=== PATIENT | male | born 1930 | race Caucasian/White ===

== ENCOUNTER 2016-12-14 18:56 | Inpatient (IN) | payer MEDICARE, BC ==
--- NOTE | ~2016-12-14 | CR63 ---
[facility] A Service of [facility] RADIOLOGY TEXT RESULTS PATIENT: LAVONNE VIVAR LOCATION: [facility] 474-01 : 31 UNIT #: [id number] AGE: [address]: Consuelo Wells MD SEX: M ORDER DR: [id number] [facility] [address] [place], [place] [address] [id number] I MR#: [id number] Acc #: [id number] NAME: LAVONNE VIVAR : 1930 SEX: M STUDY DATE/TIME: 12/17/2016 7:50 UNIT: [facility] ROOM: [facility] STUDY DESCRIPTION: CR Chest 2 View Attending Physician: Consuelo Wells M.D. Ordering Physician: Flaco Giles M.D. Primary Care Physician: Alexia Tobin M.D. MEDICAL IMAGING REPORT This report is preliminary unless electronic signature is present EXAM PA and lateral chest DATE 12/17/2016 HISTORY 86-year-old male with congestive heart failure. Urinary tract infection. Weakness and shortness of breath. Symptoms again, 12/15/2016. Former smoker. COMPARISON PA and lateral chest radiograph 12/14/2016. FINDINGS Studies attenuated by body habitus. There is stable moderate generalized cardiomediastinal enlargement with thoracic aortic tortuosity. Linear band-like atelectasis or scarring remains in the right mid lung. Interstitial thickening within both lungs is redemonstrated but appears somewhat improved. There may be trace right pleural effusion remaining. Mild asymmetric elevation of the right hemidiaphragm. No visible pneumothorax. Right rib fractures, right side pleural calcification, and what appear to be T12 and L1 compression deformities are seen to a better advantage on previous 12/15/2016 CT chest. IMPRESSION 1. Fine interstitial thickening in both lungs predominately in a bibasilar distribution thought to represent changes of mild interstitial edema, improved since 12/14/2016. Probable trace right pleural effusion. 2. Stable cardiomediastinal enlargement. [facility] A Service of [facility] RADIOLOGY TEXT RESULTS PATIENT: LAVONNE VIVAR LOCATION: [facility] 474-01 : 31 UNIT #: [id number] AGE: [address]: Consuelo Wells MD SEX: M ORDER DR: Dictated by... Eunice Hawk M.D. THIS IS AN ELECTRONICALLY VERIFIED REPORT Eunice Hawk M.D. at 12/20/2016 8:30 AM MIRANDA/lore TD: 12/17/2016 09:44 JOB #: [id number] MEDICAL IMAGING REPORT Page 1 of 1 COPY
--- NOTE | ~2016-12-14 | CT57 ---
[facility] A Service of [facility] RADIOLOGY TEXT RESULTS PATIENT: LAVONNE VIVAR LOCATION: [facility] 474-01 : 31 UNIT #: [id number] AGE: [address]: Consuelo Wells MD SEX: M ORDER DR: [id number] [facility] [address] [place], [place] [address] [id number] I MR#: [id number] Acc #: [id number] NAME: LAVONNE VIVAR : 1930 SEX: M STUDY DATE/TIME: 12/15/2016 17:56 UNIT: [facility] ROOM: [facility] STUDY DESCRIPTION: CT Chest Wo Cont Attending Physician: Consuelo Wells M.D. Ordering Physician: Humza Mccollum M.D. Primary Care Physician: Alexia Tobin M.D. MEDICAL IMAGING REPORT This report is preliminary unless electronic signature is present EXAM CT chest without contrast HISTORY Shortness of air for [address] exam was performed with one or more of the following radiation dose reduction techniques: automatic control, adjustment of mA and/or kV according to patient size, and iterative reconstruction. FINDINGS CT chest without contrast demonstrates a stable 1 cm nodule in the posterior left upper lobe, unchanged in size compared to 12/16/2007, containing tiny punctate calcifications on the prior CT, less visible on the motion compromised study today, indicating a benign granuloma. Stable calcified pleural plaque over the posterior right [id number] lung. Stable mild dilatation of the ascending thoracic aorta measuring 4.1 cm in diameter. Mild linear atelectasis or scarring in the inferior right upper lobe and in the posterior right lower lobe. Small calcified subcarinal and right paratracheal nodes. Recent, healing inferior, lateral right rib fractures, and additional recent, healing medial right lower rib fractures. Probable adherent mucus in the right mainstem bronchus. Endobronchial mass is considered less likely. IMPRESSION 1. Calcified pleural plaque posterior right lower chest and adjacent pleural thickening and mild atelectasis in the posterior right lower lobe. This is unchanged compared to 12/16/2007. 2. Stable 1 cm granuloma incidentally noted in the posterior left upper lobe. 3. Probable retained mucus in the right mainstem bronchus. Endobronchial mass is considered less likely. [facility]. [facility] A Service of [facility] RADIOLOGY TEXT RESULTS PATIENT: LAVONNE VIVAR LOCATION: [facility] 474-01 : 31 UNIT #: [id number] AGE: [address]: Consuelo Wells MD SEX: M ORDER DR: 4. Recent healing lateral and medial right lower rib fractures. Dictated by... Gerald Barrientos M.D. THIS IS AN ELECTRONICALLY VERIFIED REPORT Gerald Barrientos M.D. at 12/16/2016 10:22 PM DANIELL/sierra TD: 12/15/2016 23:14 JOB #: [id number] MEDICAL IMAGING REPORT Page 1 of 1 COPY
--- NOTE | ~2016-12-14 | CO ---
Unit #: [id number] #: [id number] Patient: LAVONNE VIVAR [address] [address] [id number] I MR#: [id number] NAME: LAVONNE VIVAR ROOM: 474 Age: 86 Sex: M Admission Date: 12/15/2016 : 1930 Attending Physician: Consuelo Wells M.D. Primary Care Physician: Alexia Tobin M.D. CONSULTATION REPORT REASON FOR CONSULTATION Shortness of breath and possible pneumonia. CHIEF COMPLAINT Shortness of breath. HISTORY OF PRESENT ILLNESS Patient basically is an 86-year-old male with past medical history significant for hypertension, dementia, Parkinson disease, likely asbestos exposure who presents with a complaint of multiple falls and was found to have urinary tract infection. I am seeing the patient at bedside complaining of mild shortness of breath. Denies any nausea, vomiting, diarrhea. PAST MEDICAL HISTORY As described above. PAST SURGICAL HISTORY Brain aneurysm. SOCIAL HISTORY Nonsmoker. No alcohol. No drug abuse. FAMILY HISTORY Unremarkable. MEDICATIONS 1. Plavix. 2. Hydrochlorothiazide. 3. Coreg. 4. Sinemet. 5. Requip. 6. Tylenol. 7. Calcium. PHYSICAL EXAMINATION VITAL SIGNS: Temperature is 98, pulse 87, respirations 12, blood pressure 96/59. NEUROLOGIC: Awake, alert at baseline. CARDIOVASCULAR: S1 plus S2. RESPIRATIONS: Bilateral air entry. Bilateral mild rhonchi. GASTROINTESTINAL: Nontender, soft. Bowel sounds positive. EXTREMITIES: No edema. SKIN: No rash. No ulcer. Unit #: [id number] #: [id number] Patient: LAVONNE VIVAR LYMPHATIC: No lymphadenopathy. DIAGNOSTIC STUDIES Labs and imaging reviewed. IMAGING: CT of the chest was done which showed calcified pleural plaque right lower chest, pleural thickening, atelectasis, 1 cm granuloma left upper lobe, retained mucous in the mainstem bronchus. Endobronchial mass is considered less likely. ASSESSMENT 1. Acute hypoxic respiratory failure. 2. Acute examination of chronic obstructive pulmonary disease, likely pneumonia versus aspiration. 3. Urinary tract infection. 4. Dementia. PLAN Plan is to admit the patient. Start him on IV antibiotic, IV steroid, procalcitonin level. Gastrointestinal and deep venous thrombosis prophylaxis. Will continue to monitor. Please see orders for detailed plan. Thank you very much for this consultation. Dictated by... Leno Demarco TD: 12/17/2016 16:51 JOB #: [id number] CONSULTATION REPORT Page 1 of 1 X Jeremías Martin MD CONSULTATION REPORT
--- NOTE | ~2016-12-14 | CR63 ---
[facility] A Service of [facility] RADIOLOGY TEXT RESULTS PATIENT: LAVONNE VIVAR LOCATION: [facility] 474-01 : 31 UNIT #: [id number] AGE: [address]: Consuelo Wells MD SEX: M ORDER DR: [id number] [facility] [address] [place], [place] [address] [id number] I MR#: [id number] Acc #: [id number] NAME: LAVONNE VIVAR : 1930 SEX: M STUDY DATE/TIME: 12/18/2016 UNIT: [facility] ROOM: [facility] STUDY DESCRIPTION: CR Chest 2 View Attending Physician: Consuelo Wells M.D. Ordering Physician: Jeremías Martin M.D. Primary Care Physician: Alexia Tobin M.D. MEDICAL IMAGING REPORT This report is preliminary unless electronic signature is present EXAM Chest 2 views 12/18/2016 07:54 hours HISTORY Patient complains of shortness of air and wheezing since 12/15/2016. History of CHF and cough. COMPARISON 12/17/2016 FINDINGS Upright PA and lateral views of the chest demonstrates stable moderate enlargement the cardiac silhouette with tortuous ectatic aorta unchanged. There is interval decrease in pulmonary venous distension and decrease in bilateral parenchymal densities likely improving edema. There is some horizontal density in the right midlung likely atelectasis or perhaps trace fluid in the fissure. The lateral view demonstrates no significant pleural fluid. IMPRESSION 1. Stable enlargement of cardiac silhouette and mediastinal widening related to a tortuous ectatic aorta. 2. Interval resolution of pulmonary venous distension with near complete clearing of bilateral parenchymal changes. There is horizontal density in the anterior midlung on the right which is likely atelectasis or fluid in the fissure. Lateral view demonstrates no significant effusions. Dictated by... Lashaun Garza M.D. THIS IS AN ELECTRONICALLY VERIFIED REPORT Lashaun Garza M.D. at 12/18/2016 2:[address] [facility] A Service of [facility] RADIOLOGY TEXT RESULTS PATIENT: LAVONNE VIVAR LOCATION: [facility] 474-01 : 31 UNIT #: [id number] AGE: [address]: Consuelo Wells MD SEX: M ORDER DR: MIRANDA/radha TD: 12/18/2016 11:33 JOB #: [id number] MEDICAL IMAGING REPORT Page 1 of 1 COPY
--- NOTE | ~2016-12-14 | CO ---
Unit #: [id number] #: [id number] Patient: LAVONNE VIVAR [id number] [place], [place] [address] [id number] I MR#: [id number] NAME: LAVONNE VIVAR ROOM: 474 Age: 86 Sex: M Admission Date: 12/15/2016 : 1930 Attending Physician: Consuelo Wells M.D. Primary Care Physician: Alexia Tobin M.D. CONSULTATION REPORT CHIEF COMPLAINT We were asked to see for congestive heart failure. HISTORY OF PRESENT ILLNESS Mr. Vivar is an 86-year-old, elderly male, who lives in the company of his , who presented to the emergency room after multiple falls. The patient is a poor historian. There was a CT of the head on 12/07 that showed diffuse cerebral atrophy consistent with the patient's age. No intracranial hemorrhage, mass effect, or midline shift was seen. The ventricles showed diffuse prominence, which was likely related to central atrophy, but there were no acute intracranial findings. There was a chest x-ray also done on 12/07, which showed bibasilar air space opacities, right greater the left, possibly related to atelectasis and/or pneumonia. There was a suggestion of a small right pleural effusion. Labs done on 12/07 also showed a creatinine level of 1.12. Normal liver enzymes. Normal CBC. He had a UA done, which showed some red blood cells that were 5-9, white blood cells 0-4, trace bacteria and mucus was present. The patient states to me that he is wheelchair bound, although he can get in and out of bed, transfer himself from the wheelchair to the bed to places. He needs to use the wheelchair for quite a while now. He has been short of breath for a couple of years and he has lower extremity edema for a couple of years now. He denies history of arteriosclerotic heart disease. Denies diabetes. Denies hypertension. Denies dyslipidemia. Positive for tobacco. FAMILY HISTORY Noncontributory. PAST MEDICAL HISTORY Positive for dementia and Parkinson. PAST SURGICAL HISTORY Unknown. SOCIAL HISTORY The patient lives in the company of his who is in poor health. They have six children. All children live in [place]. was originally from [place]. They moved here after he retired because he is originally from [place]. He quit smoking 30 years ago. He states he quit smoking when cigarettes went to 15 dollars a carton. FAMILY HISTORY Noncontributory. Unit #: [id number] #: [id number] Patient: LAVONNE VIVAR HOME MEDICATIONS 1. Plavix 75 mg daily. 2. Hydrochlorothiazide 25 mg daily. 3. Coreg 25 mg b.i.d. 4. Sinemet 25/100 six tabs t.i.d. 5. Requip 2 mg at bedtime. 6. Acetaminophen p.r.n. 7. Calcium with Vitamin D t.i.d. ALLERGIES No recorded allergies. REVIEW OF SYSTEMS Positive for chronic shortness of air. Positive for chronic lower extremity edema, chronic immobility syndrome. No chest pain or chest pressure. PHYSICAL EXAMINATION GENERAL: Chronically debilitated elderly white male, in no acute distress. VITAL SIGNS: Temperature 97.4, blood pressure 129/60, pulse 65, respirations 22, weight is 86 kg, height 6 feet 3 inches, BMI is 23. HEENT: Normocephalic, atraumatic. No xanthelasma. Extraocular movements intact. Pupils equal, round, and reactive to light. Mild jugular venous distention. LUNGS: With loose nonproductive cough. Rhonchi. Increased tactile fremitus. HEART: S1 and S2. No S3, S4. No lift. ABDOMEN: Positive bowel sounds. EXTREMITIES: Bilateral lower extremity edema and 2+ pulses. Generalized weakness. NEUROLOGIC: Awake, alert and oriented x3. Speech is slow. The patient is a fair historian. DIAGNOSTIC STUDIES IMAGING STUDIES: Chest x-ray shows cardiomegaly with prominence of the pulmonary vascular interstitium, which could reflect underlying congestive heart failure with a small right pleural effusion. Density projecting over the right paramediastinal location and posteriorly. The lateral view may represent pleural calcifications. Upper lumbar compression fractures appear chronic. CT of the head shows no acute intracranial findings. Atrophy and chronic small vessel changes. Prior aneurysm clipping x2. LABORATORY DATA: Chemistry; sodium 138, potassium 3.2, chloride 102, CO2 30, BUN 18, creatinine 1.2, glucose 126, AST 14, ALT 14, CK 176. BNP 134. Alcohol less than 5. PT 11.7, INR 1.1. Troponin less than 0.05 and repeat less than 0.05. Hemoglobin 13.6, hematocrit 42.5. White blood cell count 12.7, platelet count 163. Urinalysis shows 2+ leukocyte esterase, trace protein, positive for red blood cells, positive for white blood cells. Mucus is present. Urine culture is pending. ASSESSMENT/PLAN 1. Congestive heart failure with fluid volume overload. Echo has been ordered and is pending. 2. Urinary tract infection. The patient has been started on antibiotics, Rocephin IV. We will add Lasix. Unit #: [id number] #: [id number] Patient: LAVONNE VIVAR Dictated by... Magda Wills/didi TD: 12/16/2016 08:28 JOB #: [id number] CONSULTATION REPORT Page 1 of 1 X X CONSULTATION REPORT
--- NOTE | ~2016-12-14 | HP ---
Unit #: [id number] #: [id number] Patient: LAVONNE VIVAR [id number] [address] [id number] I MR#: [id number] NAME: LAVONNE VIVAR ROOM: 474 Age: 86 Sex: M Admission Date: 12/15/2016 : 1930 Attending Physician: Consuelo Wells M.D. Primary Care Physician: Alexia Tobin M.D. HISTORY AND PHYSICAL ADMISSION DIAGNOSES 1. Urinary tract infection. 2. History of multiple falls. 3. Dementia. 4. Parkinson disease. 5. Hypertension. 6. Hypokalemia. 7. History of brain aneurysm status post repair. HISTORY OF PRESENT ILLNESS Mr. Lavonne Vivar is an 86-year-old gentleman who lives at home with his with a history of dementia, Parkinsonism, hypertension and history of brain aneurysm status post repair. The patient was brought to the emergency room secondary to multiple falls in the past week or so. Initial evaluation was suspicious for a UTI with 2+ leukocyte esterase and 50 to 100 WBCs on the urine. The patient was started on Rocephin. The patient is, again, the one with dementia with a very limited ability to carry on a conversation. Most of the history obtained through his , who I spoke to over the phone. Therefore, I am unable to obtain any further history. I am unable to obtain any review of systems. PAST MEDICAL HISTORY History of hypertension, dementia, Parkinson disease and brain aneurysm. PAST SURGICAL HISTORY Brain aneurysm repair. SOCIAL HISTORY No history of tobacco, alcohol or illicit drugs. FAMILY HISTORY Unremarkable. ALLERGIES No known drug allergies. HOME MEDICATIONS 1. Plavix. 2. Hydrochlorothiazide. 3. Coreg. 4. Sinemet. 5. Requip. 6. Tylenol. 7. Calcium with vitamin D. Unit #: [id number] #: [id number] Patient: LAVONNE VIVAR PHYSICAL EXAMINATION GENERAL APPEARANCE: He is a pleasantly demented 86-year-old gentleman not in acute distress. VITAL SIGNS: Blood pressure 129/60. Heart rate 65. Respirations 22. Temperature 97.4. HEENT: Head is atraumatic. He does have a previous scar from the craniotomy. Pupils equal, round and reactive to light. Extraocular muscles intact. Oropharynx clear. NECK: Supple. No mass. No JVD. No bruits. CHEST: Diminished at the bases but otherwise clear. CARDIOVASCULAR: S1, S2. No murmurs. ABDOMEN: Soft, nontender, nondistended. LOWER EXTREMITIES: Very trace edema. NEUROLOGIC: Very limited secondary to patient's dementia. He moves all four extremities. He is alert and awake but, again, he is confused and unable to carry on a meaningful conversation. DIAGNOSTIC STUDIES LABORATORY: UA as above. Chemistry significant for potassium of 3.2, blood glucose 126. White count 12.7, hemoglobin 13.6, hematocrit 42.6. CK 176. BNP 134. ASSESSMENT AND PLAN 1. Multiple falls with the history of Parkinson dementia. Continue home medications. We will get the PT/OT eval. 2. Leukocytosis with questionable UTI, started on Rocephin. Chest x-ray shows some congestion. We will get a CT of the chest without contrast to rule out pneumonia. 3. Elevated BNP with questionable, again, pulmonary edema. We will check 2-D echo. BNP at 134. We will ask Cardiology evaluation. Hold off diuretics secondary to BP in 120s. 4. Hypokalemia. We will replace. Check magnesium level. 5. History of hypertension, stable. 6. GI and DVT prophylaxis with Pepcid and SCDs. Dictated by Leno Callahan/susan TD: 12/15/2016 14:57 JOB #: [id number] HISTORY AND PHYSICAL Page 1 of 1 X Humza Mccollum MD X HISTORY AND PHYSICAL
--- NOTE | ~2016-12-14 | CR72 ---
[facility] A Service of [facility] RADIOLOGY TEXT RESULTS PATIENT: LAVONNE VIVAR LOCATION: [facility] 474 : 31 UNIT #: [id number] AGE: [address]: Consuelo Wells MD SEX: M ORDER DR: [id number] [facility] [address] [place], [place] [address] [id number] I MR#: [id number] Acc #: [id number] NAME: LAVONNE VIVAR : 1930 SEX: M STUDY DATE/TIME: 12/17/2016 14:39 UNIT: [facility] ROOM: [facility] STUDY DESCRIPTION: CR Chest Single View Portable Attending Physician: Consuelo Wells M.D. Ordering Physician: Humza Mccollum M.D. Primary Care Physician: Alexia Tobin M.D. MEDICAL IMAGING REPORT This report is preliminary unless electronic signature is present EXAM AP portable chest DATE 12/17/2016 HISTORY 86-year-old male with shortness breath and wheezing. Symptoms began 12/15/2016. Congestive heart failure. Former smoker. COMPARISON PA and lateral chest radiograph 12/17/2016 at 07:50, CT chest 12/15/2016 FINDINGS Airspace disease within the bilateral lower lobes thought to represent atelectasis, probably not significantly changed. Stable cardiac enlargement with central vascular congestion. Probable mild central interstitial edema. Old right rib fractures. Probable trace right pleural effusion. No visible pneumothorax. IMPRESSION 1. Mild interstitial edema with mild right greater than left bibasilar atelectasis and trace right pleural effusions, without significant change from earlier today. 2. Stable cardiomegaly. 3. Old right rib fractures. Dictated by... Eunice Hawk M.D. THIS IS AN ELECTRONICALLY VERIFIED REPORT Eunice Hawk M.D. at 12/20/2016 8:30 AM MIRANDA/иван [facility] A Service of [facility] RADIOLOGY TEXT RESULTS PATIENT: LAVONNE VIVAR LOCATION: [facility] : 31 UNIT #: [id number] AGE: [address]: Consuelo Wells MD SEX: M ORDER DR: TD: 12/17/2016 17:31 JOB #: [id number] MEDICAL IMAGING REPORT Page 1 of 1 COPY
--- NOTE | ~2016-12-14 | CR63 ---
[facility] A Service of [facility] RADIOLOGY TEXT RESULTS PATIENT: LAVONNE VIVAR LOCATION: [address] [address]- : 31 UNIT #: [id number] AGE: [address]: Consuelo Wells MD SEX: M ORDER DR: [id number] [facility] [address] [place], [place] [address] [id number] I MR#: [id number] Acc #: [id number] NAME: LAVONNE VIVAR : 1930 SEX: M STUDY DATE/TIME: 12/14/2016 22:01 UNIT: [facility] ROOM: [id number] STUDY DESCRIPTION: CR Chest 2 View Attending Physician: Consuelo Wells M.D. Ordering Physician: Saskia Herbert M.D. Primary Care Physician: Alexia Tobin M.D. MEDICAL IMAGING REPORT This report is preliminary unless electronic signature is present EXAM 2-view chest HISTORY A recent fall, shortness of air for 2 days previous smoker. FINDINGS 2 views of the chest demonstrates cardiomegaly with prominence of the pulmonary vascular and interstitium could reflect underlying CHF. Mild haziness over both lungs may represent a component of interstitial and alveolar edema. There is right sided volume loss with right basilar atelectasis. Probable trace amount of right pleural fluid. Suspected pleural thickening and/or calcification along the posterior aspect of the right pleural space. Mild diffuse aortic atherosclerotic change. No pneumothorax. Evaluation of thoracic spine demonstrates several compression fractures involving the upper lumbar spine with approximately 40 to 50% loss of the vertebral body height. IMPRESSION 1. Cardiomegaly with prominence of the pulmonary vascular and interstitium could reflect underlying CHF with a small right pleural effusion. 2. Density projecting in the right paramediastinal location and posteriorly on the lateral view may represent pleural calcifications possibly related to prior trauma. 3. Upper lumbar compression fractures appear chronic. Dictated by... Sharon Hussein M.D. THIS IS AN ELECTRONICALLY VERIFIED REPORT Sharon Hussein M.D. at 12/17/2016 6:07 AM JMS/rnr [facility] A Service of [facility] RADIOLOGY TEXT RESULTS PATIENT: LAVONNE VIVAR LOCATION: [facility] 474-01 : 31 UNIT #: [id number] AGE: [address]: Consuelo Wells MD SEX: M ORDER DR: TD: 12/15/2016 03:30 JOB #: [id number] MEDICAL IMAGING REPORT Page 1 of 1 COPY
--- NOTE | ~2016-12-14 | CT71 ---
[facility] A Service of [facility] RADIOLOGY TEXT RESULTS PATIENT: LAVONNE VIVAR LOCATION: [facility] 474- : 31 UNIT #: [id number] AGE: [address]: Consuelo Wells MD SEX: M ORDER DR: [id number] [facility] [address] [facility]. [place], [place] [address] [id number] MR#: [id number] Acc #: [id number] NAME: LAVONNE VIVAR : 1930 SEX: M STUDY DATE/TIME: 12/14/2016 22:33 UNIT: CEDOF ROOM: 03805 STUDY DESCRIPTION: CT Head Wo Contrast Attending Physician: Consuelo Wells M.D. Ordering Physician: Saskia Herbert M.D. Primary Care Physician: Alexia Tobin M.D. MEDICAL IMAGING REPORT This report is preliminary unless electronic signature is present EXAM CT head INDICATIONS Fall three times at home. Hit head. Trauma. TECHNIQUE CT head without contrast. This CT exam was performed with one or more of the following radiation dose reduction techniques: automatic control, adjustment of mA and/or kV according to patient size, and iterative reconstruction. COMPARISON None available. FINDINGS There is no acute intracranial hemorrhage, mass lesion, or acute infarct. There is generalized global cerebral atrophy and chronic small vessel changes. There are clips associated with the anterior cerebral artery and the left MCA indicative of prior aneurysm clipping. The ventricles and basilar cisterns are normal in size and configuration. No extraaxial collections. There is no acute osseous abnormalities. There is postsurgical changes of a craniotomy on the right and the left. IMPRESSION 1. No acute intracranial findings. 2. Atrophy and chronic small vessel changes. 3. Prior aneurysm clipping x2. Dictated by... Lonnie Dove M.D. [facility] A Service [facility] RADIOLOGY TEXT RESULTS PATIENT: LAVONNE VIVAR LOCATION: [facility] 474- : 31 UNIT #: [id number] AGE: [address]: Consuelo Wells MD SEX: M ORDER DR: THIS IS AN ELECTRONICALLY VERIFIED REPORT Lonnie Dove M.D. at 12/15/2016 11:15 PM PRISCILA/sierra TD: 12/15/2016 03:35 JOB #: [id number] MEDICAL IMAGING REPORT Page 1 of 1 COPY
--- NOTE | ~2016-12-14 | DS ---
Unit #: [id number] #: [id number] Patient: LAVONNE VIVAR [id number] [facility]. [place] [id number] [facility]. [place], [place] [address] [id number] I MR#: [id number] NAME: LAVONNE VIVAR ROOM: 474 Age: 86 Sex: M Admission Date: 12/15/2016 : 1930 Discharge Date: 12/18/2016 Attending Physician: Consuelo Wells M.D. Primary Care Physician: Alexia Tobin M.D. DISCHARGE SUMMARY DISCHARGE DIAGNOSES 1. Enterococcal urinary tract infection. 2. Multiple falls. 3. Parkinson dementia. 4. Hypertension. 5. History of brain aneurysm. 6. Congestive heart failure. CONSULTANTS DONE THIS HOSPITAL STAY 1. Dr. Martin, pulmonary. 2. Dr. Carlin, cardiology. LABS AND DIAGNOSTICS AND PROCEDURES DONE THIS HOSPITAL STAY 1. Chest x-ray on admission showed cardiomegaly with the pulmonary vascular prominence, underlying CHF. 2. CT head without the contrast: No acute findings. Generalized atrophy. 3. CT of the chest without contrast: Calcified pleural plaque unchanged. Stable 1 cm granuloma. Likely a mucous plug. Recent healing lateral and medial right lower rib fracture. 4. Last chest x-ray from December 18: Stable right ventral cardiac silhouette. Mediastinal widening. Tortuous ectatic aorta. Interval resolution of the pulmonary venous distention with the near complete clearing of bilateral parenchymal changes. 5. Urine culture shows Enterococcus sensitive to ampicillin. HISTORY OF PRESENT HOSPITAL STAY Please refer to H and P done by me for initial presentation on this gentleman. ACTIVE PROBLEMS AND DIAGNOSES Enterococcal UTI, was treated with the Unasyn in the hospital, now switching to a p.o. ampicillin for five more days. Stable to be discharged, afebrile, white count 5.8. Multiple falls, most likely secondary to Parkinson dementia, status post negative CT of the head, status post PT/OT evaluation. [facility] CHF, status post Cardiology evaluation. Continue beta elsi and continue Lovenox. Status post 2D echo which shows EF of 55% with the grade I diastolic dysfunction so his diastolic heart failure. History of brain aneurysm status post repair in the past, stable. Unit #: [id number] #: [id number] Patient: LAVONNE VIVAR DISCHARGE MEDICATIONS 1. Combivent inhaler q.4 h. p.r.n. for shortness of air. 2. Prednisone taper for five more days. 3. Tylenol p.r.n. 4. Requip 2 mg q.h.s. 5. Coreg 25 mg b.i.d. 6. Lasix 20 mg b.i.d. 7. Pepcid 20 mg daily. 8. Sinemet 25/100 six tablets p.o. t.i.d. 9. Plavix 75 mg daily. 10. Calcium with vitamin D t.i.d. 11. Klor-Con 20 mEq daily. 12. Ampicillin 500 mg p.o. t.i.d. for five days. DISPOSITION AND FOLLOWUP Again patient is being discharge to either [facility] or [facility] and will follow up with the primary care physician there, outpatient followup with the cardiology. Dictated by... Humza Mccollum M.D. OC/cf TD: 12/18/2016 19:50 JOB #: [id number] DISCHARGE SUMMARY Page 1 of 1 X Humza Mccollum MD X DISCHARGE SUMMARY
--- NOTE | ~2016-12-14 | EKG ---
PATIENT: LAVONNE VIVAR UNIT #: [id number] Ventricular Rate: 73 BPM Atrial Rate: 73 BPM P-R Interval: 162 ms QRS Duration: 104 ms Q-T Interval: 378 ms QTC Calculation(Bezet): 416 ms P [place]: 31 degrees Calculated R [place]: -5 degrees Calculated T [place]: 3 degrees Diagnosis Line: Normal sinus rhythm Diagnosis Line: Normal ECG Diagnosis Line: No previous ECGs available Diagnosis Line: Confirmed by LIA ELIZONDO MD ([id number]) on Diagnosis Line: 12/15/2016 4:29:47 PM INTERPRETING MD: MIKHAIL KNOWLES
[2016-12-14 21:55] LABS: BASOPHIL# 0.1 X10e3 (0-0.3); BASOPHIL% 0.6 % (0-2.5); DIFF IND NO; EOSINOPHIL# 0.1 X10e3 (0-0.7); EOSINOPHIL% 0.6 % (0.0-7.0); HEMATOCRIT 42.5 % (38.0-50.0); HEMOGLOBIN 13.6 gm/dL (13.0-16.0); LYMPHOCYTE# 2.1 X10e3 (1.0-3.5); LYMPHOCYTE% 16.4 % (17.0-45.0); MEAN CELL VOLUME 91.1 FL (83-96); MEAN CORPUSCULAR HEMOGLOBIN 29.2 PG (28-34); MEAN CORPUSCULAR HGB CONC 32.1 g/dL (30-36); MEAN PLATELET VOLUME 9.3 FL (6.5-11.5); MONOCYTE# 0.9 X10e3 (0-1.0); MONOCYTE% 7.4 % (3.0-12.0); NEUTROPHIL# 9.5 X10e3 (1.5-7.1); PLATELET COUNT 163 X10e3 (140-420); RED BLOOD COUNT 4.66 X10e (3.90-5.60); RED CELL DISTRIBUTION WIDTH 14.4 % (11.0-15.5); WHITE BLOOD COUNT 12.7 X10e3 (4.0-10.5)
[2016-12-14 22:08] LABS: INR 1.1; PROTHROMBIN TIME (PATIENT) 11.7 SECONDS (9.6-11.5)
[2016-12-14 22:23] LABS: ALBUMIN SERUM 3.2 g/dL (3.5-5.0); ALCOHOL BLOOD <5 mg/dL (0); ALKALINE PHOSPHATASE 91 U/L (32-92); ALT (SGPT) 14 U/L (10-40); AST (SGOT) 14 U/L (10-42); BILIRUBIN, DIRECT 0.2 mg/dL (0.0-0.2); BILIRUBIN,INDIRECT 0.5 mg/dL (0.0-0.9); BILIRUBIN,TOTAL 0.7 mg/dL (0.2-2.0); BLOOD UREA NITROGEN 18 mg/dL (9-23); CALCIUM SERUM 8.6 mg/dL (8.4-10.2); CARBON DIOXIDE 30 mmol/L (22-31); CHLORIDE 102 mmol/L (100-111); CREATININE SERUM 1.2 mg/dL (0.6-1.4); GLOM FILT RATE Estimated 54.8 mL/min (>60); GLUCOSE FASTING 126 mg/dL (70-110); POTASSIUM 3.2 mmol/L (3.5-5.1); PROTEIN TOTAL SERUM 6.6 g/dL (6.0-8.3); SODIUM 138 mmol/L (135-145)
[2016-12-14 23:20] LABS: URINE SOURCE CLEAN CATCH
[2016-12-14 23:23] LABS: URINE APPEARANCE CLOUDY; URINE BLOOD TRACE (NEG); URINE COLOR DK YELLOW; URINE GLUCOSE NEG (NEG); URINE KETONE TRACE (NEG); URINE LEUKOCYTE ESTERASE 2+ (NEG); URINE NITRATE NEG (NEG); URINE PROTEIN TRACE (NEG); URINE SPECIFIC GRAVITY 1.025 (1.003-1.035)
[2016-12-14 23:24] LABS: POC - CKMB <1.0 ng/mL (0.0-7.9); POC - TROPONIN <0.05 ng/mL (<=0.05)
[2016-12-14 23:25] LABS: CULTURE INDICATED? YES; URINE BACTERIA AUWI 2+ (NEGATIVE); URINE SQUAMOUS EPITHELIAL CELL NONE SEEN /[HPF]; UWBCS1 AUWI 50-100 (0-5)
[2016-12-14 23:39] LABS: URINE BILIRUBIN NEG (NEG)
[2016-12-14 23:40] LABS: URINE MUCUS PRESENT
[2016-12-15 00:21] LABS: POC - CKMB <1.0 ng/mL (0.0-7.9); POC - TROPONIN <0.05 ng/mL (<=0.05)
[2016-12-15] MEDS ORDERED: CLOPIDOGREL75 MG PO (01:00)
[2016-12-15] MEDS ORDERED: HYDROCHLOROTHIA25 MG PO (01:01)
[2016-12-15] MEDS ORDERED: COREG PO (01:02)
[2016-12-15] MEDS ORDERED: REQUIP XL2 MG PO (13:30)
[2016-12-15] MEDS ORDERED: SINEMET-25/1001 TA1 PO (13:30)
[2016-12-15] MEDS ORDERED: CALCIUM 500 +1 EAC2 PO (13:58)
[2016-12-15] MEDS ORDERED: ACETAMINOPHEN PO (13:58)
[2016-12-16 03:27] LABS: BASOPHIL# 0.1 X10e3 (0-0.3); BASOPHIL% 0.6 % (0-2.5); EOSINOPHIL# 0.2 X10e3 (0-0.7); EOSINOPHIL% 2.6 % (0.0-7.0); HEMOGLOBIN 13.7 gm/dL (13.0-16.0); LYMPHOCYTE# 1.7 X10e3 (1.0-3.5); LYMPHOCYTE% 20.3 % (17.0-45.0); MEAN CELL VOLUME 91.4 FL (83-96); MEAN CORPUSCULAR HEMOGLOBIN 29.8 PG (28-34); MEAN CORPUSCULAR HGB CONC 32.6 g/dL (30-36); MONOCYTE# 0.6 X10e3 (0-1.0); MONOCYTE% 7.1 % (3.0-12.0); NEUTROPHIL# 5.8 X10e3 (1.5-7.1); NEUTROPHIL% 69.4 % (40-75); PLATELET COUNT 168 X10e3 (140-420); RED CELL DISTRIBUTION WIDTH 14.1 % (11.0-15.5); WHITE BLOOD COUNT 8.4 X10e3 (4.0-10.5)
[2016-12-16 03:38] LABS: DIFF IND NO
[2016-12-16 03:45] LABS: CALCIUM SERUM 8.3 mg/dL (8.4-10.2); CREATININE SERUM 0.9 mg/dL (0.6-1.4); GLOM FILT RATE Estimated 77.6 mL/min (>60)
[2016-12-16 04:04] LABS: PROCALCITONIN 0.08 NG/ML
[2016-12-17 04:20] LABS: BUN/CREATININE RATIO 21.11; CALCIUM SERUM 8.9 mg/dL (8.4-10.2); CREATININE SERUM 0.9 mg/dL (0.6-1.4); GLOM FILT RATE Estimated 77.6 mL/min (>60); POTASSIUM 3.9 mmol/L (3.5-5.1)
[2016-12-18 03:31] LABS: BASOPHIL% 0.3 % (0-2.5); DIFF IND NO; EOSINOPHIL% 0.1 % (0.0-7.0); HEMATOCRIT 42.9 % (38.0-50.0); HEMOGLOBIN 13.9 gm/dL (13.0-16.0); LYMPHOCYTE# 0.9 X10e3 (1.0-3.5); LYMPHOCYTE% 15.8 % (17.0-45.0); MEAN CELL VOLUME 90.1 FL (83-96); MEAN CORPUSCULAR HEMOGLOBIN 29.3 PG (28-34); MEAN CORPUSCULAR HGB CONC 32.5 g/dL (30-36); MEAN PLATELET VOLUME 9.5 FL (6.5-11.5); MONOCYTE# 0.1 X10e3 (0-1.0); MONOCYTE% 1.5 % (3.0-12.0); NEUTROPHIL# 4.8 X10e3 (1.5-7.1); NEUTROPHIL% 82.3 % (40-75); PLATELET COUNT 191 X10e3 (140-420); RED BLOOD COUNT 4.76 X10e (3.90-5.60); RED CELL DISTRIBUTION WIDTH 13.9 % (11.0-15.5); WHITE BLOOD COUNT 5.8 X10e3 (4.0-10.5)
[2016-12-18 03:57] LABS: ALBUMIN SERUM 3.1 g/dL (3.5-5.0); BILIRUBIN,TOTAL 0.5 mg/dL (0.2-2.0); CALCIUM SERUM 9.1 mg/dL (8.4-10.2); CREATININE SERUM 0.9 mg/dL (0.6-1.4); GLOM FILT RATE Estimated 77.6 mL/min (>60); MAGNESIUM 1.9 mg/dL (1.6-3.0); POTASSIUM 4.1 mmol/L (3.5-5.1); PROTEIN TOTAL SERUM 6.8 g/dL (6.0-8.3)
[2016-12-18 05:07] LABS: ARTERIAL BLD GAS O2 SATURATION 94.8 % (90.0-100.0); ARTERIAL BLOOD GAS HCO3 33.7 mmol/L; ARTERIAL BLOOD GAS MET HB 0.7 %sat (0.0-2.0); ARTERIAL BLOOD GAS pH 7.437 (7.350-7.450)
[2016-12-18 05:08] LABS: ARTERIAL BLOOD GAS ALLEN TEST NORMAL; ARTERIAL BLOOD GAS ART SITE RIGHT RADIAL; ARTERIAL BLOOD GAS DELIVERY NASAL CANNULA; ARTERIAL BLOOD GAS PO2 75.6 mmHg (80.0-100); ARTERIAL DRAW? YES
== END 2016-12-18 21:07 | DRG 291 ==
LOC: CED 18:56 → CEDOF 12-15 01:34 → CED 12-15 01:41 → CEDOF 12-15 01:41 → C4C 12-15 09:40 → CEDOF 12-15 09:40 → C4C 12-18 21:07
PROVIDERS: Emergency Medicine; Hospitalist; Internal Medicine; Internal Medicine Cardiovascular Disease; Nurse Practitioner Family
PROC: B24BZZZ Ultrasonography of Heart with Aorta (ICD-10-PCS; principal; 2016-12-16)
DX: I11.0 Hypertensive heart disease with heart failure (principal); J96.01 Acute respiratory failure with hypoxia; J18.9 Pneumonia, unspecified organism; N39.0 Urinary tract infection, site not specified; J44.0 Chronic obstructive pulmonary disease with (acute) lower respiratory infection; I50.31 Acute diastolic (congestive) heart failure; B95.2 Enterococcus as the cause of diseases classified elsewhere; R29.6 Repeated falls; Z91.81 History of falling; G20 Parkinson's disease; F02.80 Dementia in other diseases classified elsewhere, unspecified severity, without behavioral disturbance, psychotic disturbance, mood disturbance, and anxiety; E87.6 Hypokalemia; M62.3 Immobility syndrome (paraplegic)
CPT/HCPCS: 36415; 36600; 70450; 71010; 71020; 71250; 80048; 80053; 80076; 81003; 82308; 82550; 82553; 82803; 82947; 83605; 83735; 83880; 84443; 84484; 85025; 85610; 87086; 87088; 87186; 93005; 93306; 94640; 94760; 96365; 97110; 97116; 97161; 97166; 97530; 99285; G0480; G8978-GP; G8979-GP; G8987-GO; G8988-GO; J0295; J0696; J1650; J1940; J2930

== ENCOUNTER 2017-02-04 19:45 | Inpatient (IN) | payer MEDICARE ==
[~2017-02-04] VITALS: Ht 188 cm; Wt 88.0 kg
--- NOTE | ~2017-02-04 | CO ---
Unit #: [id number] #: [id number] Patient: LAVONNE VIVAR [id number] [facility] [address]. [place], [place] [address] [id number] I MR#: [id number] NAME: LAVONNE VIVAR ROOM: 571 Age: 87 Sex: M Admission Date: 02/04/2017 : 1930 Attending Physician: Consuelo Wells M.D. Primary Care Physician: Alexia Tobin M.D. 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 HISTORY OF PRESENT ILLNESS 87-year-old gentleman we were asked to see because of a rectal mass at 15 cm, which was biopsied but the endoscopies, Dr. Del Valle stated in his evaluation, the lesion looked more malignant. It was nearly apple core, which is not reflected in the pathology. The patient, himself, is totally unaware of what is happening. When interviewed in the room he does not know his name. He knows that he is [facility] but has no idea about why he is here and what has been found so far. No family member available and the two daughters are out of town, one of the sons is not available and has most probably the power of corporate associate attorney. The nurses were told that the mother cannot remember much and should not be involved. PAST HISTORY Mainly remarkable for parkinsonism and brain aneurysm, state of which is unknown to us, history of hypertension, COPD, and reflux disease. FAMILY HISTORY Unavailable but is overall negative or unremarkable. SOCIAL HISTORY Patient lives with his . Nonsmoker. No alcohol. He is retired. ALLERGIES No known allergies. CHRONIC MEDICATIONS FROM HOME Coreg, Plavix, Requip, Sinemet, Lasix, calcium, nitroglycerin, zantac, acetaminophen periodically. REVIEW OF SYSTEMS He is unable to answer the majority of the questions. He states that he is fine. No pain but otherwise review of system was limited. PHYSICAL EXAMINATION GENERAL: Looks stated age. Very pleasant. No palpable nodes. LUNGS: Clear. CARDIOVASCULAR: Distant S1 and S2. ABDOMEN: No palpable liver or spleen. No ascites. Upper and lower extremity musculature, some atrophy. Nothing unusual considering age. RECTAL: Not performed. Unit #: [id number] #: [id number] Patient: LAVONNE VIVAR DIAGNOSTIC STUDIES LABORATORY STUDIES: Glucose 86, BUN 17, creatinine 0.9, sodium 140, potassium 3.9, chloride 103, CO2 32, calcium of 9.5. ProTime 11.9, INR 1.1. Hemoglobin 13.8, hematocrit 43.6, white count 14.6, platelet 221,000. CEA is 5.6. IMAGING STUDIES: CT scan of the abdomen and pelvis was reviewed and its shows a mass lesion of about 2-3 cm in the rectum. No evidence of metastatic disease. 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 No evidence of active or invasive cancer or carcinoma in situ. Has Parkinson dementia. has memory problems and two daughter we could not get a hold of that are out of town and the son who is supposedly has power of corporate associate attorney but is not available at this point during evaluation and subsequent second day evaluation. So at this point this is a difficulty situation. I would consider: 1. Re-endoscopy and biopsy. 2. MRI to see if this is a resectable lesion and consider surgical option as #1 option, as without evidence of actual invasive carcinoma, it is difficult to treat with chemoradiotherapy. Will discuss all this with all the doctors involved. Dictated by... Leno Olivares/laura TD: 02/16/2017 12:59 JOB #: [id number] CONSULTATION REPORT Page 1 of 1 X Jimbo Velasquez MD X CONSULTATION REPORT
--- NOTE | ~2017-02-04 | HP ---
Unit #: [id number] #: [id number] Patient: LAVONNE VIVAR [id number] [address] [address] [id number] I MR#: [id number] NAME: LAVONNE VIVAR ROOM: 571 Age: 87 Sex: M Admission Date: 02/04/2017 : 1930 Attending Physician: Consuelo Wells M.D. Primary Care Physician: Alexia Tobin M.D. HISTORY AND PHYSICAL CHIEF COMPLAINT Altered mental status and shortness of breath. HISTORY OF PRESENTING ILLNESS An 87-year-old male with a past history of Parkinson disease, COPD, hypertension, and questionable dementia, was sent from home because of altered mental status. Patient was seen by his home health nurse or nurse practitioner, I am not sure, and was told that he needs to come to the hospital. Patient was sent to the ER and was admitted for possible aspiration pneumonia, possible metabolic encephalopathy, possible COPD exacerbation, and abnormal EKG. Patient is awake, alert, and oriented x1 for sure but not able to provide much history. He does not complain of any pain. Per patient's , he is pretty with it at home, although he needs a lot of help with activities of daily living. PAST MEDICAL HISTORY 1. Hypertension. 2. Parkinson disease. 3. History of brain aneurysm. 4. Chronic obstructive pulmonary disease. 5. Gastroesophageal reflux disease. PAST SURGICAL HISTORY History of brain aneurysm. HOME MEDICATIONS 1. Plavix 75 mg daily. 2. Coreg 25 mg twice daily. 3. Sinemet 25/100 at 2 tablets 3 times daily. 4. Requip 2 mg at bedtime. 5. Acetaminophen 500 mg q.6 p.r.n. 6. Calcium with vitamin D 500 at 1 tablet 3 times daily. 7. Lasix 20 mg twice daily. 8. Potassium 10 mEq daily. 9. Nitroglycerin 0.4 mg sublingual p.r.n. 10. Zantac 150 mg daily. ALLERGIES No known drug allergies. SOCIAL HISTORY Patient lives at home with his . No history of smoking, alcohol, or drug abuse. Unit #: [id number] #: [id number] Patient: LAVONNE VIVAR FAMILY HISTORY Unremarkable. REVIEW OF SYSTEMS As per History of Presenting Illness. Nothing more is available at this time. PHYSICAL EXAMINATION GENERAL: Patient is being evaluated in room 571. VITAL SIGNS: Blood pressure is 132/92. On admission, blood pressure was 176/101. Respiratory rate 18, pulse 92, temperature 98.1, and oxygen saturation is 96%. HEENT: Head is normocephalic. Eye movements are normal. NECK: Supple. CHEST: Decreased air entry at the bases. A few crackles are heard. CARDIOVASCULAR: S1 and S2 positive. Regular rhythm. ABDOMEN: Soft although per patient it is hurting in the abdomen on palpation. Bowel sounds are positive. EXTREMITIES: Edema is present. Pulses are palpable. Cold extremities. CENTRAL NERVOUS SYSTEM: Patient is awake. He is able to communicate some. He is able to answer some questions. He is moving all his extremities. DIAGNOSTIC STUDIES LABORATORY: WBC 8.7, hemoglobin 14.5, hematocrit 44.5, and platelet count of 173,000. Troponin is less than 0.05. PT-INR is 11.9 and 1.1. Lactic acid 1.3. Sodium 138, potassium 3.7, chloride 105, BUN 15, and creatinine 1.5. BNP 195. Total cholesterol 118 and LDL is 67. Blood cultures so far are negative. ASSESSMENT Patient is being admitted to a telemetry unit with: 1. Altered mental status, possible metabolic encephalopathy. 2. Possible aspiration pneumonia. 3. Chronic obstructive pulmonary disease exacerbation. 4. Abnormal EKG. 5. Hypertension. 6. History of Parkinson disease. PLAN Admit to telemetry unit. Dr. Odom has been consulted. Patient is being started on IV clindamycin as per his recommendation. Speech evaluation was done, and diet has been adjusted. Please refer to the Progress Note. Mucinex is being started, bronchodilator is being started, and IV Solu-Medrol is being started. Dr. Carlin is being consulted for abnormal EKG. Most likely conservative treatment at this time. Please refer to Progress Note for further orders. Dictated by Leno Lin TD: 02/05/2017 14:16 JOB #: [id number] Unit #: [id number] #: [id number] Patient: LAVONNE VIVAR HISTORY AND PHYSICAL Page 1 of 1 X Consuelo Wells MD HISTORY AND PHYSICAL
--- NOTE | ~2017-02-04 | CO ---
Unit #: [id number] #: [id number] Patient: LAVONNE VIVAR [id number] [place] [address] [facility]. [place], [place] [address] [id number] I MR#: [id number] NAME: LAVONNE VIVAR ROOM: 571 Age: 87 Sex: M Admission Date: 02/04/2017 : 1930 Attending Physician: Consuelo Wells M.D. Primary Care Physician: Alexia Tobin M.D. Consultation Date: 02/05/2017 CONSULTATION REPORT REASON FOR CONSULTATION Abnormal EKG. HISTORY OF PRESENT ILLNESS This is an 87-year-old white male with history of Parkinson disease and history of hypertension, brain aneurysm years ago had clipping, and EF of 55%, who was brought in by EMS from his home after his said, he just was not feeling well and a just got lightheaded and weak. The patient was seen to be very sleepy this morning and was a very poor historian. He was awake and alert, but was not very cooperative with answering questions. I talked to the on the phone, who says that normally he is coherent, he makes his own decisions. He does have the Parkinson's. He is in a wheelchair lot of the day, but he can ambulate a little bit with a walker. According to the , the visiting nurse came in yesterday and evaluated the patient, she thought compared to last week he just was not feeling well. He proceeded to get up from the bed to the wheelchair and got very lightheaded and weak. The said he just was not acting himself. She said he mentioned he was dizzy, but there was no syncope or syncopal episode that occurred. Upon asking the patient and , there was no indication of any chest pain; pain in his neck, bilateral jaws, shoulders, arms, or elbow. She did not think he looked very short of breath. No recent cough, fever or chills. No recent acute illness. The patient was in the hospital here in 11/2016 and we were consulted at that time to see him. He was here for congestive heart failure. His 2D echo at that time showed EF of 55%. We treated him with some diuretics and he had a followup appointment to see Dr. Carlin in a couple of weeks. He was also treated for a bad urinary tract infection at that time. In the emergency room, the patient's blood pressure was 176/101, heart rate was 124, respirations 24, temperature 99.3, O2 saturation was 94% on 2 L. His initial labs; his cardiac enzymes are negative. His creatinine is 1.5. BNP is 195. Lactic acid 1.3. WBCs are 8.7. Urinalysis is pending. His chest x-ray shows right-sided infiltrate, possible aspiration pneumonia. EKG shows some T-wave inversion in inferior leads and also in V1. Cardiology consulted to assist with evaluation and management. The patient was given a bolus of normal saline and 125 mg of IV Solu-Medrol. On admission to the ER, there were symptoms that were consistent with some exacerbation of COPD. Cardiology was consulted to assist with evaluation and management of his tachycardia on admission along with abnormal EKG. PAST MEDICAL HISTORY Unit #: [id number] #: [id number] Patient: LAVONNE VIVAR 1. Parkinson disease. 2. COPD. 3. Hypertension. 4. History of brain aneurysm, status post clipping years ago. 5. In 11/2016, 2D echo, LVEF is 55%, impaired relaxation with indicating grade 1 diastolic dysfunction and mild pulmonic regurgitation. 6. COPD, reformed smoker. 7. Wheelchair bound. PAST SURGICAL HISTORY Brain aneurysm repair. HOME MEDICATIONS Plavix 75 mg p.o. daily, carvedilol 25 mg p.o. b.i.d., Sinemet 25/100 two tablets p.o. t.i.d., Requip 2 mg p.o. at bedtime, acetaminophen 500 mg p.o. every 6 hours p.r.n., calcium plus vitamin D 1 tablet p.o. t.i.d., Lasix 20 mg p.o. b.i.d., Klor-Con 10 mEq p.o. daily, nitroglycerin 0.4 mg sublingual p.r.n., Zantac 150 mg p.o. daily. ALLERGIES No known drug allergies. SOCIAL HISTORY The patient lives with his spouse. He has almost complete care but he can get up of his wheelchair occasionally and uses the walker for a few steps. He quit smoking 20 years ago. No alcohol or illicit drug abuse. FAMILY HISTORY Noncontributory. REVIEW OF SYSTEMS See details in HPI. PHYSICAL EXAMINATION GENERAL: Mr. Vivar is an 87-year-old white male, in no acute respiratory distress. He is awake, seems alert, but poor historian. Answers simple yes/no questions occasionally. VITAL SIGNS: Temperature is 98.1, heart rate 88, respirations 18, blood pressure 139/94, O2 saturations 97% on 2 L. NECK: Trachea midline. No thyromegaly or lymphadenopathy. Normal carotid upstrokes. No jugular venous distention. HEART: S1, S2. Regular rate and rhythm. No clicks, murmurs, or rubs. LUNGS: Diminished otherwise clear. ABDOMEN: Obese, soft, nontender. EXTREMITIES: Pedal pulses are palpable. 1+ pedal edema. DIAGNOSTIC STUDIES LABORATORY RESULTS: Glucose is 133, BUN 15, creatinine 1.5, eGFR is 41.6, sodium 137, potassium 3.7, chloride 105, CO2 of 26. Calcium is 8.5, total protein 6.5, albumin 3.2, bilirubin total 0.9, AST 16, ALT 13, alkaline phosphatase is 83. WBCs 8.7, hemoglobin 14.5, hematocrit 44.5, and platelets is 173. Initial cardiac enzymes; CK-MB is less than 1.0, troponin less than 0.05. CK-MB is less than 1.0, troponin less than 0.05. INR is 1.1. Lactic acid 1.3. BNP is 195. Urinalysis is pending. IMAGING STUDIES: Chest x-ray shows some chronic airspace opacity in the right mid lung and mild linear air space opacities in the left lung. No pleural effusion. Unit #: [id number] #: [id number] Patient: LAVONNE VIVAR CARDIOVASCULAR STUDIES: EKG shows sinus tachycardia, heart rate 122 beats per minute, left axis deviation, incomplete right bundle-branch block, nonspecific ST-T wave abnormalities in inferior and anterior leads. IMPRESSION 1. Tachycardia. 2. Mild exacerbation of chronic obstructive pulmonary disease. 3. EKG changes. 4. Dizziness. 5. Right side pneumonia, questionable aspiration. 6. Parkinson disease. 7. Hypertension. 8. History of brain aneurysm, status post clipping. 9. Last echo on 12/15/2016, shows left ventricular ejection fraction of 55% with mild pulmonic regurgitation. 10. Chronic obstructive pulmonary disease. 11. Reformed smoker. 12. Wheelchair bound. PLAN 1. Cardiology consult to assist with evaluation and management. 2. Cardiac enzymes so far are negative. EKG does show some T-wave inversion in inferior and septal leads this morning. 3. Had a long discussion with the on the phone. According to her, the patient has never had any ischemic heart disease workup. However, at this point, she would prefer medical management due to his Parkinson disease and other comorbidities. 4. We will obtain fasting lipid profile and evaluate. 5. Pulmonology has evaluate the patient and think he has a right-sided pneumonia may be aspiration. Speech has been asked to evaluate the patient for his swallowing. 6. The patient had a dose of IV Lasix, but on exam, he does not appear to be in any acute congestive heart failure. Continue on his oral Lasix for now. 7. The patient is on Plavix. I asked the why he is on Plavix, she does not remember, but as mentioned he has never had a heart catheterization or stress test, but she would rather hold off on that for now if possible. 8. Continue the carvedilol, Lasix, potassium, and also on baby aspirin 81 mg daily. 9. Had a long discussion with the about his code status. She states that he has said in the past he does not want to be intubated or resuscitated. She wants to try to ask the patient which she feels like he is coherent and does not have dementia that he should be to able answer those questions for himself and she states she will agree with anything he wants to do. 10. Further recommendations pending per Dr. Carlin. Thank you very much for allowing us to assist in the care. Dictated by... Magda Ramsay/didi TD: 02/06/2017 07:09 Unit #: [id number] #: [id number] Patient: LAVONNE VIVAR JOB #: [id number] CONSULTATION REPORT Page 1 of 1 X Vira Paniagua APRN X CONSULTATION REPORT
--- NOTE | ~2017-02-04 | A ---
[facility] Nutrition Therapy DATE: 02/14/17 Patient: LAVONNE VIVAR Physician: KATHIE Address: [address] [place], [place] [address] Room/Bed: [address] [place] [address], Zip: [place] [address] Admit Date: 02/04/17 Date of : 31 Height: 6 2 Weight: 207 94.3 NUTRITIONAL ASSESSMENT: REASON: LOS ASSESSMENT PT IS 87 Y.O. MALE ADMITTED FOR COPD EXAC, ACUTE RESP FAILURE, ATYPICAL EKG PMH: HTN, DEMENTIA, PARKINSONS DISEASE, COPD, GERD, CHF, BRAIN ANEURYSM Anthropometrics: 6'2", WT: 207# (94 KG), BMI: 26.6 Labs: ALB: 3.2 Meds: LOVENOX, PREDNISONE, PEPCID, PROTONIX, OS-NOEL 500+D, NACL I/O & Bowel function: 150/751, 1 BM NOTED Skin Integrity: TATTOOS NOTED EDEMA: BLE GENERAL EDEMA; BILATERAL LEGS 3+ EDEMA Assessment: CHART REVIEWED AND EVENTS NOTED. PT SEEN FOR LENGTH OF STAY ASSESSMENT (10 DAYS). PT SLEEPY AND NOTED TO BE SLIGHTLY CONFUSED AT TIME OF VISIT. PT REPORTS "OK" PO INTAKE AND APPETITE. PT UNABLE TO CONDUCT FULL NUTRITION INTERVIEW. RD ENCOURAGED PO INTAKE, PT AGREED TO ENSURE PUDDING ONCE DIET ADVANCES. PER RN AND CHART, PT CURRENTLY NPO 2' ENDOSCOPY SCHEDULED, PT WAS PREVIOUSLY ON MECHANICAL SOFT + NECTAR THICK LIQUIDS (PER EDUCATIONAL SIGN LANGUAGE INTERPRETER EVAL). NO WEIGHT LOSS NOTED IN [facility]. RD TO FOLLOW. SEE RECOMMENDATIONS BELOW. OF NOTE, PT CONSUMED ~75% FOR BREAKFAST AND 100% LUNCH ON 02/11 PER [facility]. Dx: DECREASED NUTRIENT INTAKE R/T CURRENT DIAGNOSIS/CURRENT CONDITION, ADVANCED AGE, SUSPECTED DECREASED APPETITE AEB PT REPORT ABOVE/REVIEW OF CHART. Intervention: 1. NPO Monitoring, Evaluation and Goals: 1. ORAL INTAKE; ADVANCE DIET AND TOLERATE/CONSUME >50% OF MEALS AND SUPPLEMENTS 2. WEIGHTS; PROMOTE WEIGHT MAINTENANCE MONITOR ABOVE GOALS Recommendations: 1. ONCE MEDICALLY FEASIBLE, ADVANCE DIET BACK TO PREVIOUS EDUCATIONAL SIGN LANGUAGE INTERPRETER DIET OF MECHANICAL SOFT + NECTAR THICK LIQUIDS [facility] Nutrition Therapy DATE: 02/14/17 Patient: LAVONNE VIVAR Physician: KATHIE Address: [address] [facility] Room/Bed: [address] [place] [address], Zip: [place] [address] Admit Date: 02/04/17 Date of : 31 Height: 6 2 Weight: 207 94.3 2. PLEASE ORDER KISHORE ENSURE PUDDING BID ONCE DIET ADVANCES 3. APPRECIATE FAMILY AND STAFF TO ENCOURAGE PO INTAKE 4. CONSIDER ADDING MVI W/MINERAL DAILY 2' ADVANCED AGE, FAIR PO INTAKE AND APPETITE RD WILL F/U PER PROTOCOL PT IS MILDLY COMPROMISED Respectfully, ANITA MAYFIELD MS, RD, LD Food and Nutritional Services [facility] cc: client file
--- NOTE | ~2017-02-04 | EKG ---
PATIENT: LAVONNE VIVAR UNIT #: [id number] Ventricular Rate: 122 BPM Atrial Rate: 122 BPM P-R Interval: 146 ms QRS Duration: 96 ms Q-T Interval: 334 ms QTC Calculation(Bezet): 475 ms P [place]: 24 degrees Calculated R [place]: -32 degrees Calculated T [place]: -18 degrees Diagnosis Line: Sinus tachycardia Diagnosis Line: Left axis deviation Diagnosis Line: Incomplete right bundle branch block Diagnosis Line: T wave abnormality, consider anterior ischemia Diagnosis Line: Abnormal ECG Diagnosis Line: When compared with ECG of 14-DEC-2016 21:36, Diagnosis Line: Vent. rate has increased BY 49 BPM Diagnosis Line: ST now depressed in Anterior leads Diagnosis Line: Confirmed by MAURICIO REAL MD ([id number]) on 02/07/2017 Diagnosis Line: 7:53:24 AM INTERPRETING MD: FARHAN KNOWLES
--- NOTE | ~2017-02-04 | CR7 ---
[facility] A Service of [facility] & [facility] RADIOLOGY TEXT RESULTS PATIENT: LAVONNE VIVAR LOCATION: [facility] 571-01 : 31 UNIT #: [id number] AGE: [address]: Consuelo Wells MD SEX: M ORDER DR: [id number] [facility] [address] [facility]. [place], [place] [address] [id number] I MR#: [id number] Acc #: [id number] NAME: ALVONNE VIVAR : 1930 SEX: M STUDY DATE/TIME: 02/11/2017 UNIT: [facility] ROOM: [facility] STUDY DESCRIPTION: CR Abdomen Single AP View Attending Physician: Consuelo Wells M.D. Ordering Physician: Nish Del Valle Jr., M.D. Primary Care Physician: Alexia Tobin M.D. MEDICAL IMAGING REPORT This report is preliminary unless electronic signature is present EXAM Abdomen single views 02/11/2017 09:42 hours HISTORY Abdominal pain diffusely today. COMPARISON None. FINDINGS Single supine view of the abdomen demonstrates a nonspecific bowel gas pattern. There is a moderately large amount of stool in the rectum and distal colon with colonic diverticula present. No definite small bowel distension. There appears to be an abnormal disc space level at T11-T12 with disc height loss and irregularity of the endplates surfaces but this finding is not detectable on a two view chest study of 12/18/2016 and could be new. Patient is scheduled for CT abdomen and pelvis today and attention to the thoracic lumbar junction is recommended on that exam. IMPRESSION 1. There is a [id number] amount of contrast remaining in the colon and rectum. No small bowel distension. 2. Abnormal appearance at the T11-T12 disc space with disc height loss and endplate irregularity not detectable on chest film 12/18/2016. Patient is scheduled for a followup CT abdomen and pelvis today. Attention to the thoracic lumbar junction is recommended on that exam. This finding could be related to fracture or possibly discitis. Dictated by... Lashaun Garza M.D. THIS IS AN ELECTRONICALLY VERIFIED REPORT ST[facility]. [facility] A Service of [facility] & [facility] RADIOLOGY TEXT RESULTS PATIENT: LAVONEN VIVAR LOCATION: [facility] 571-01 : 31 UNIT #: [id number] AGE: [address]: Consuelo Wells MD SEX: M ORDER DR: Lashaun Garza M.D. at 02/11/2017 2:28 PM MIRANDA/radha TD: 02/11/2017 10:14 JOB #: [id number] MEDICAL IMAGING REPORT Page 1 of 1 COPY
--- NOTE | ~2017-02-04 | OR ---
Unit #: [id number] #: [id number] Patient: LAVONNE VIVAR [id number] [address] [place], [place] [address] [id number] I MR#: [id number] NAME: LAVONNE VIVAR ROOM: 571 Date of Procedure: 02/14/2017 Admission Date: 02/04/2017 Surgeon: Nish Del Valle Jr., M.D. : 1930 Attending Physician: Consuelo Wells M.D. Primary Care Physician: Alexia Tobin M.D. OPERATIVE REPORT INDICATIONS FOR PROCEDURE The patient is an 87-year-old white male, who presented with COPD and abnormal EKG. Since his admission, he has had a workup and CT scan revealed evidence of a rectal mass. It was felt that the patient needed a flexible sigmoidoscopy since he has had no prepping, cannot tolerate it and he is brought to the endoscopy suite at this time for this procedure. Informed consent has been obtained. PREOPERATIVE DIAGNOSIS Rectal mass, rule out cancer. 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 ANESTHESIA MAC anesthesia. PROCEDURE PERFORMED Flexible sigmoidoscopy to the transverse colon with biopsies of mass at 15 cm. DESCRIPTION OF PROCEDURE The patient was positioned in [place] position with left side down. After being given MAC anesthesia, digital rectal examination was performed, which revealed no palpable mass or tenderness. No blood or stool in the rectal ampulla. The prostate was normal by palpation. The Olympus colonoscope was advanced through the anal canal up the rectum and retroflexed down to the area of the anorectal region. There was no evidence of any fissures. No significant internal hemorrhoids. The scope was then straightened and advanced up in the rectosigmoid at 15 cm, where there was an apple-core appearing lesion which appeared to be cancer. Several biopsies were taken from it and sent to pathology using the cold biopsy forceps. There was only minimal oozing from the biopsy sites. The scope was passed around the lesion without any significant resistance or obstruction into the sigmoid and then descending colon areas, there were a few diverticula present. No other tumors or polyps. The scope was then advanced around the splenic flexure and the transverse colon, where there was a significant amount of stool. The scope was slowly removed. There were no other abnormalities except for the apple-core lesion described above at 15 cm. The scope was removed. The patient tolerated the Unit #: [id number] #: [id number] Patient: LAVONNE VIVAR procedure well and discharged back to floor in satisfactory condition. Dictated by... Nish Del Valle Jr., M.D. JMB/didi TD: 02/14/2017 17:08 JOB #: [id number] OPERATIVE REPORT Page 1 of 1 X Nish Del Valle MD X PROCEDURE OPERATIVE NOTE
--- NOTE | ~2017-02-04 | CR72 ---
[facility] A Service of [facility] RADIOLOGY TEXT RESULTS PATIENT: LAVONNE VIVAR LOCATION: [facility] 571-01 : 31 UNIT #: [id number] AGE: [address]: Consuelo Wells MD SEX: M ORDER DR: [id number] [facility] [address] [facility]. [place], [place] [address] [id number] I MR#: [id number] Acc #: [id number] NAME: LAVONNE VIVAR : 1930 SEX: M STUDY DATE/TIME: 02/14/2017 10:18 UNIT: [facility] ROOM: [facility] STUDY DESCRIPTION: CR Chest Single View Portable Attending Physician: Consuelo Wells M.D. Ordering Physician: Germaine Carlin M.D. Primary Care Physician: Alexia Tobin M.D. MEDICAL IMAGING REPORT This report is preliminary unless electronic signature is present EXAM Chest portable, 02/14/2017, 1018 hours. CLINICAL HISTORY 87-year-old man complaining of shortness of air today. COMPARISON 02/04/2017 FINDINGS Portable upright chest demonstrates stable moderate cardiomegaly and a stable tortuous ectatic aorta. There is increase in pulmonary venous distension and slight increase in perihilar and basilar interstitial change raising concern for element of mild new edema. Chronic patchy density at the right base is stable. There is no definite effusion. IMPRESSION Stable cardiomegaly and tortuous ectatic aorta. There is interval increase in pulmonary venous distension and perihilar interstitial change suggesting an element of mild edema. Stable patchy density at the right base. Dictated by... Lashaun Garza M.D. THIS IS AN ELECTRONICALLY VERIFIED REPORT Lashaun Garza M.D. at 02/15/2017 8:53 AM MIRANDA/caity TD: 02/14/2017 20:42 JOB #: [id number] [facility] A Service [facility] RADIOLOGY TEXT RESULTS PATIENT: LAVONNE VIVAR LOCATION: [facility] 571-01 : 31 UNIT #: [id number] AGE: [address]: Consuelo Wells MD SEX: M ORDER DR: MEDICAL IMAGING REPORT Page 1 of 1 COPY
--- NOTE | ~2017-02-04 | CO ---
Unit #: [id number] #: [id number] Patient: LAVONNE VIVAR [id number] [address] [address] [id number] I MR#: [id number] NAME: LAVONNE VIVAR ROOM: 571 Age: 87 Sex: M Admission Date: 02/04/2017 : 1930 Attending Physician: Consuelo Wells M.D. Primary Care Physician: Alexia Tobin M.D. Consultation Date: 02/08/2017 CONSULTATION REPORT NEPHROLOGY CONSULTATION REASON FOR CONSULT Acute kidney injury. HISTORY OF PRESENT ILLNESS Mr. Vivar is an 87-year-old, frail, white male with a history of Parkinson's and dementia, who was just discharged in November for a urinary tract infection and fall issues, who was readmitted for failure to thrive and likely aspiration pneumonia. The patient has been treated with antibiotics with some improvement while here. We were asked to see because of a steady incline in his creatinine from normal previously up to 1.5 on admission and now up to 3.7 today. The patient has not received any IV contrasted studies or NSAIDs that I can tell. They are recording urine output with voids x2 yesterday but he does not have a Kruger. It is not clear what his p.o. status has been as his tray for lunch is sitting there and untouched. He had been on some Lasix for diastolic heart failure as an outpatient but this was held on admission. Dr. Odom has ordered some IV fluids today. He does not appear to be in any respiratory distress, no swelling issues. No fevers or chills. The patient is a very poor historian and most of the history was taken from the chart and nursing staff. PAST MEDICAL HISTORY Significant for: 1. Hypertension. 2. Congestive heart failure, diastolic in nature. 3. Parkinson disease with dementia. 4. History of brain aneurysm in the past. 5. COPD. 6. GERD. 7. Recent UTI. PAST SURGICAL HISTORY He has had a brain aneurysm. MEDICATIONS Current medications are as follows. He is on: 1. Unasyn as directed. 2. Solu-Medrol 40 mg daily. 3. Potassium chloride was just discontinued. 4. Normal saline at 75 mL/hour. 5. Duo-Neb inhaler. 6. Coreg 25 mg twice a day. Unit #: [id number] #: [id number] Patient: LAVONNE VIVAR 7. Sinemet two tablets three times a day. 8. Requip 2 mg at bedtime. 9. Os-Trent D three times a day. 10. Protonix 40 mg a day. 11. Robitussin p.r.n. 12. Plavix 75 mg a day. 13. Baby aspirin daily. 14. Florastor 250 mg twice a day. 15. Lovenox 30 mg subcu daily. 16. Pepcid 20 mg a day and p.r.n. ALLERGIES He has no known drug allergies. FAMILY HISTORY Not available from the patient today and likely noncontributory. SOCIAL HISTORY The patient, per the records, lives at home with his spouse. No history of tobacco, alcohol or drug abuse. REVIEW OF SYSTEMS A complete 12 point review of systems was attempted but made difficult secondary to his underlying confusion. He does not appear to be in any pain or distress. There are no fevers or chills documented. No nosebleeds or sore throat issues. No complaints of pain or chest pain. No hemoptysis. NO reports of vomiting or diarrhea. No reports of bright red blood per rectum or melena. No reports of hematuria. No reports of rashes. No complaints of back or flank pain. No night sweats, no hot flashes. No seemingly intolerance to heat or cold. No bleeding issues reported. It looks like his p.o. status is poor. Unless otherwise indicated, the review of systems was negative. PHYSICAL EXAMINATION VITAL SIGNS: The patient is afebrile. Pulse 73, respiratory rate 16, blood pressure 141/74. GENERAL: This is an elderly 87-year-old male, slow to answer questions, disoriented to place but in no acute distress. HEENT: Head is atraumatic, normocephalic. Eyes show pink conjunctivae but no scleral icterus. No nasal drainage of nosebleed. Oropharynx is dry. No thrush. NECK: No rigidity, no JVD. HEART: Regular rate and rhythm with no murmurs or rubs appreciated. LUNGS: Without wheezing or rhonchi. Breathing is nonlabored at rest. ABDOMEN: Soft. Bowel sounds are represent. There does appear to be supratherapeutic fullness up to above the umbilicus. He does appear to be tender in this area. EXTREMITIES: No lower extremity cyanosis or pitting edema. Skin is dry with wrinkles noted in the feet. Skin is without rashes. MUSCULOSKELETAL: No joint effusions noted, no CVA tenderness to palpation. NEUROLOGICAL: Cranial nerves appear grossly intact. He does have some generalized weakness but I do not note any focal deficits. LYMPHATIC: There is no neck cervical lymphadenopathy. PSYCHIATRIC: Mood appears normal but affect is somewhat flat. DIAGNOSTIC STUDIES LABORATORY: Chemistry today noteworthy for a sodium of 137, potassium Unit #: [id number] #: [id number] Patient: VIVAR,BAISIL 5.3, chloride 103, bicarb 23, glucose 126, BUN 57, creatinine up to 3.7. Urine culture showed Enterococcus. Yesterday's creatinine was 3.3. Yesterday's CBC showed a white count of 12, hemoglobin 13, platelet count 200 with a left shift. Urinalysis on admission was noteworthy for numerous white blood cells and bacteria. Blood cultures are negative. BNP on admission was 195. Creatinine on admission was 1.5. Again, review of the chart from last admission shows a discharge creatinine of 0.9 and, overall, his creatinine has increased from 1.5 on readmission up to 3.7 today. No previous kidney imaging done. IMAGING: Lower extremity Dopplers were negative. Chest x-ray on admission showed some chronic interstitial changes. ASSESSMENT AND PLAN 1. Acute kidney injury: I suspect this is either prerenal in nature from poor p.o. intake and dehydration with preadmission Lasix use and/or obstruction as he does appear to have a full bladder on exam. We will be checking a bladder scan and placing a Kruger if needed. IV fluids have been ordered. We will continue to hold the Lasix and monitor labs daily. Of note, the patient's nurse just came to me as I was dictating and the results of a bladder scan show significant urinary retention of at least a liter. A Kruger catheter will be placed. 2. Hyperkalemia: This is likely due to his renal insufficiency. We will stop his potassium and this should correct with relief of his obstruction. 3. Enterococcal urinary tract infection: The patient has been on Unasyn. 4. Hypertension: The patient's blood pressure is reasonable on his current medications. 5. Parkinson's with dementia. 6. Aspiration pneumonia, on antibiotics. 7. Chronic obstructive pulmonary disease. 8. History of congestive heart failure which is diastolic in nature: The patient looks compensated and we will continue to hold his Lasix until volume status is resuscitated. I would like to thank Dr. Odom for this consult and the opportunity to participate in the evaluation and care of Mr. Vivar. Dictated by... James Lorenz Jr., M.D. Unit #: [id number] #: [id number] Patient: LAVONNE VIVAR SJK/df TD: 02/11/2017 06:19 JOB #: [id number] CONSULTATION REPORT Page 1 of 1 X James Lorenz MD X CONSULTATION REPORT
--- NOTE | ~2017-02-04 | CO ---
Unit #: [id number] #: [id number] Patient: LAVONNE VIVAR [id number] [facility] [address] [facility]. [place], [place] [address] [id number] MR#: [id number] NAME: LAVONNE VIVAR ROOM: 571 Age: 87 Sex: M Admission Date: 02/04/2017 : 1930 Attending Physician: Consuelo Wells M.D. Primary Care Physician: Alexia Tobin M.D. Consultation Date: 02/05/2017 CONSULTATION REPORT REASON FOR CONSULTATION Shortness of breath. HISTORY OF PRESENT ILLNESS This is an 87-year-old male with a past medical history significant for Parkinson disease and hypertension. He presented to the emergency room via EMS for altered mental status and shortness of breath. The patient is currently confused and unable to provide any history. Per his , she stated that the patient at baseline is oriented times three and he manages to take his medications. However, he has visiting home health nurse who was concerned about his mental status and shortness of breath. There was no reported fever or chills. The patient was having mild cough, but no sputum production. There was no reported nausea, vomiting or diarrhea. The patient lives at home with his . The patient most recently was at [facility] toward the end of November 2016. PAST MEDICAL HISTORY 1. Hypertension. 2. Parkinson disease. 3. Dementia. 4. History of brain aneurysm. PAST SURGICAL HISTORY Brain aneurysm surgery. SOCIAL HISTORY No history of alcohol, drug abuse or tobacco abuse. FAMILY HISTORY Unremarkable. ALLERGIES No known drug allergies. HOME MEDICATIONS 1. Plavix. 2. HCTZ. 3. Coreg. 4. Requip. 5. Tylenol. 6. Calcium with vitamin D. Unit #: [id number] #: [id number] Patient: LAVONNE VIVAR PHYSICAL EXAMINATION GENERAL: The patient is awake, but he is confused. He seems calm at this point. VITALS: Blood pressure 131/71, respiratory rate 16, O2 saturations 98%. HEENT: Atraumatic, normocephalic. Pupils equally round and reactive to light and accommodation. Extraocular muscles intact. NECK: Supple. No jugular venous distension. No lymphadenopathy. CHEST: Bilateral rhonchi. HEART: S1 and S2. Systolic murmur. ABDOMEN: Soft, nontender and bowel sounds positive. No hepatosplenomegaly. EXTREMITIES: Trace edema. SKIN: No rashes. NEUROLOGIC: The patient is awake and alert, but confused. He is moving all extremities. DIAGNOSTIC STUDIES IMAGING: Chest x-ray is consistent with right-sided pneumonia, like aspiration. LABORATORY: Creatinine 1.5, sodium 138. White blood cell count 8.7, hemoglobin 14.5. ASSESSMENT 1. Toxic metabolic encephalopathy. 2. Pneumonia, likely aspiration. 3. Acute kidney injury. 4. Parkinson disease. 5. Dementia. 6. Hypertension. PLAN 1. The patient's baseline mental status is oriented times three and he managed to take his medications per . His toxic metabolic encephalopathy is likely related to pneumonia medication. 2. Will start the patient on clindamycin and will obtain speech evaluation. Will continue mucolytics and bronchodilator. 3. Continue IV hydration. 4. Adjust medication per GFR. 5. The patient is currently full code, but we may need to discuss his code status and goals of care with his . I would like to thank Dr. Wells for allowing me to be part of this patient's care. Dictated by... Migdalia Odom M.D. EA/mario TD: 02/05/2017 11:34 JOB #: [id number] Unit #: [id number] #: [id number] Patient: LAVONNE VIVAR CONSULTATION REPORT Page 1 of 1 X MIGDALIA TALBERT MD CONSULTATION REPORT
--- NOTE | ~2017-02-04 | CO ---
Unit #: [id number] #: [id number] Patient: LAVONNE VIVAR [id number] [address] [address] [id number] MR#: [id number] NAME: LAVONNE VIVAR ROOM: 571 Age: 87 Sex: M Admission Date: 02/04/2017 : 1930 Attending Physician: Consuelo Wells M.D. Primary Care Physician: Alexia Tobin M.D. Consultation Date: 02/11/2017 CONSULTATION REPORT CHIEF COMPLAINT Gross hematuria. HISTORY OF PRESENT ILLNESS Mr. Vivar is an 87-year-old gentleman here with dementia. He has some gross hematuria. He has an enterococcal UTI. We were consulted for the hematuria. The patient is resting comfortably. He denies problems urinating. There is very, very light pink-tinged urine in the catheter. The patient denies dysuria or gross hematuria. He denies pain in his flank. PAST MEDICAL HISTORY Dementia, hypertension, COPD, GERD, brain aneurysm. MEDICATIONS Plavix, Coreg, Sinemet, Requip, Lasix, potassium chloride, nitroglycerin, Zantac. ALLERGIES No known drug allergies. SOCIAL HISTORY He denies smoking. He denies drinking. REVIEW OF SYSTEMS Negative for 10 systems except for he is feeling tired. FAMILY HISTORY Noncontributory. PHYSICAL EXAMINATION VITAL SIGNS: Stable. Afebrile. NECK: Trachea midline. HEENT: Eyes equal and reactive to light. CARDIAC: Benign. PULMONARY: Benign. ABDOMEN: Soft without rebound or guarding. No CVA tenderness. : Kruger catheter in place. Normal external genitalia. Urine in the catheter is very light pink tinged. EXTREMITIES: No clubbing or edema. NEUROLOGIC: Cranial nerves II through XII seem to be intact. DIAGNOSTIC STUDIES LABORATORY RESULTS: Creatinine is 0.9. White count 13.2. Unit #: [id number] #: [id number] Patient: LAVONNE VIVAR Urinalysis; 3+ leukocytes, positive nitrites, 1+ bacteria. Urine culture from the shows Enterococcus, sensitive to ampicillin and nitrofurantoin. ASSESSMENT AND PLAN Gross hematuria and urinary tract infection. The patient is on, I think, Augmentin. We will check a CT scan noncontrast. The patient had a catheter placed on the , I believe. Bladder scan was performed; I do not know what the residual was. Catheter was placed. He did have some renal failure. We will start him on Flomax empirically assuming he could have retention. Dictated by... Miguel Brooks M.D. TERRY/didi TD: 02/12/2017 04:07 JOB #: [id number] CONSULTATION REPORT Page 1 of 1 X Miguel Brooks MD X CONSULTATION REPORT
--- NOTE | ~2017-02-04 | EKG ---
PATIENT: LAVONNE VIVAR UNIT #: [id number] Ventricular Rate: 96 BPM Atrial Rate: 96 BPM P-R Interval: 146 ms QRS Duration: 104 ms Q-T Interval: 390 ms QTC Calculation(Bezet): 492 ms P [place]: 23 degrees Calculated R [place]: -24 degrees Diagnosis Line: Normal sinus rhythm Diagnosis Line: RSR' or QR pattern in V1 suggests right Diagnosis Line: ventricular conduction delay Diagnosis Line: Prolonged QT Diagnosis Line: Abnormal ECG Diagnosis Line: When compared with ECG of 04-FEB-2017 20:24, Diagnosis Line: (unconfirmed) Diagnosis Line: ST no longer depressed in Anterior leads Diagnosis Line: T wave inversion no longer evident in Anterior Diagnosis Line: leads Diagnosis Line: Confirmed by CANDELARIO BERGER MD ([id number]) on Diagnosis Line: 02/05/2017 4:22:31 PM INTERPRETING MD: ARASELI
--- NOTE | ~2017-02-04 | CT4 ---
[facility] A Service of [facility] & [facility] RADIOLOGY TEXT RESULTS PATIENT: LAVONNE VIVAR LOCATION: [facility] 571-01 : 31 UNIT #: [id number] AGE: [address]: Consuelo Wells MD SEX: M ORDER DR: [id number] [facility] [address] [place], [place] [address] [id number] I MR#: [id number] Acc #: [id number] NAME: LAVONNE VIVAR : 1930 SEX: M STUDY DATE/TIME: 02/11/2017 10:01 UNIT: [facility] ROOM: 1 STUDY DESCRIPTION: CT Abd and Pelv Wo Cont Attending Physician: Consuelo Wells M.D. Ordering Physician: Nish Del Valle Jr., M.D. Primary Care Physician: Alexia Tobin M.D. MEDICAL IMAGING REPORT This report is preliminary unless electronic signature is present EXAM CT of the abdomen and pelvis without contrast INDICATION Gross hematuria and acute renal failure for [address] of the abdomen and pelvis was performed with oral contrast only. Coronal and sagittal reformatted images were obtained. This CT exam was performed with one or more of the following radiation dose reduction techniques: automatic exposure control, adjustment of mA and/or kV according to patient size, and iterative reconstruction. COMPARISON No comparisons are available. FINDINGS There are pleural calcifications within the right lung base. There is scarring/atelectasis elsewhere in the lung bases. Evaluation of the solid organs and viscera of the abdomen and pelvis is limited due to the lack of IV contrast. The liver is unremarkable. Cholecystectomy. The spleen is unremarkable. There are intrarenal vascular calcifications present but no definite kidney stone on the left. There may be a punctate nonobstructing stone in the lower pole of the right kidney and also in the upper pole but these could also be vascular calcifications. There are small cysts in left kidney. There are prominent extrarenal pelves but no evidence for hydronephrosis. The adrenal glands are unremarkable. The pancreas is unremarkable. PELVIS: There is a polypoid soft tissue attenuation structure within the rectum concerning for a mass or polyp. Further evaluation with colonoscopy is recommended. Multiple diverticula are seen elsewhere in STS. [facility] A Service of [facility] RADIOLOGY TEXT RESULTS PATIENT: LAVONNE VIVAR LOCATION: [facility] 571-01 : 31 UNIT #: [id number] AGE: [address]: Consuelo Wells MD SEX: M ORDER DR: the colon. No free fluid. Kruger catheter in the bladder. Associated air in the nondependent portion of the bladder. Ectasia of the iliac arteries. Bone windows show age indeterminate compression deformities of T12 and L1. IMPRESSION 1. There is a polypoid structure within the rectum along the right side measuring about 3.2 x 2.2 cm in greatest AP by transverse dimension. The appearance is concerning for a mass or polyp. Further evaluation with colonoscopy is recommended. 2. There are pleural calcifications in the right base. 3. Cholecystectomy 4. No definite renal stone. There are intrarenal vascular calcifications. 5. No hydronephrosis. 6. Kruger catheter in the bladder. 7. Ectasia of the infrarenal abdominal aorta. Dictated by... Clint Hussein M.D. THIS IS AN ELECTRONICALLY VERIFIED REPORT Clint Hussein M.D. at 02/11/2017 4:57 PM Gustavo TD: 02/11/2017 14:18 JOB #: [id number] MEDICAL IMAGING REPORT Page 1 of 1 COPY
--- NOTE | ~2017-02-04 | CR72 ---
[facility] A Service of [facility] RADIOLOGY TEXT RESULTS PATIENT: LAOVNNE VIVAR LOCATION: [facility]07-29 : 31 UNIT #: [id number] AGE: [address]: Consuelo Wells MD SEX: M ORDER DR: [id number] [facility] [address] [place], [place] [address] [id number] I MR#: [id number] Acc #: [id number] NAME: LAVONNE VIVAR : 1930 SEX: M STUDY DATE/TIME: 02/04/2017 20:19 UNIT: [facility] ROOM: [facility] STUDY DESCRIPTION: CR Chest Single View Portable Attending Physician: Consuelo Wells M.D. Ordering Physician: Paddy Lott M.D. Primary Care Physician: Alexia Tobin M.D. MEDICAL IMAGING REPORT This report is preliminary unless electronic signature is present EXAM Single view chest INDICATIONS Shortness of air for 1 day. COMPARISON Single portable AP view of the chest compared to 12/18/2016 and 12/17/2016. FINDINGS Heart and mediastinal contours are enlarged, unchanged. There is some chronic airspace opacity in the right mid lung. There is background COPD. Mild linear airspace opacities in the left lung base are also unchanged. No pleural effusion. IMPRESSION 1. No new findings. 2. Stable cardiomegaly and chronic interstitial changes in both lung bases. Dictated by... Lonnie Dove M.D. THIS IS AN ELECTRONICALLY VERIFIED REPORT Lonnie Dove M.D. at 02/05/2017 3:07 PM PRISCILA/bailey TD: 02/05/2017 12:01 JOB #: [id number] [facility] A Service [facility] RADIOLOGY TEXT RESULTS PATIENT: LAVONNE VIVAR LOCATION: [facility] : 31 UNIT #: [id number] AGE: [address]: Consuelo Wells MD SEX: M ORDER DR: MEDICAL IMAGING REPORT Page 1 of 1 COPY
--- NOTE | ~2017-02-04 | US84 ---
[id number] [facility] [address] [place], [place] [address] [id number] I MR#: [id number] Acc #: [id number] NAME: LAVONNE VIVAR : 1930 SEX: M STUDY DATE/TIME: 02/05/2017 18:37 UNIT: [facility] ROOM: 571 STUDY DESCRIPTION: US LE Veins Complete Reese Stdy Attending Physician: Consuelo Wells M.D. Ordering Physician: Consuelo Wells M.D. Primary Care Physician: Alexia Tobin M.D. MEDICAL IMAGING REPORT This report is preliminary unless electronic signature is present EXAM Bilateral lower extremity venous duplex, 02/05/2017 HISTORY Bilateral lower extremity pain for 1 day, evaluate for deep vein thrombosis. TECHNIQUE Venous ultrasound examination of both lower extremities was performed using grayscale, spectral Doppler and color flow Doppler imaging. FINDINGS The examination is negative. There is no evidence of deep venous thrombus from the groin to the lower calf bilaterally. Visualized greater saphenous veins are also patent. IMPRESSION Negative examination. No evidence of lower extremity deep venous thrombosis. Dictated by... Carlo Barnhart M.D. THIS IS AN ELECTRONICALLY VERIFIED REPORT Carlo Barnhart M.D. at 02/06/2017 2:19 PM VANESSA/lobo TD: 02/06/2017 00:25 JOB #: [id number] MEDICAL IMAGING REPORT Page 1 of 1 COPY
--- NOTE | ~2017-02-04 | CO ---
Unit #: [id number] #: [id number] Patient: LAVONNE VIVAR [id number] [facility] [place], [place] [address] [id number] I MR#: [id number] NAME: LAVONNE VIVAR ROOM: 571 Age: 87 Sex: M Admission Date: 02/04/2017 : 1930 Attending Physician: Consuelo Wells M.D. Primary Care Physician: Alexia Tobin M.D. Consultation Date: 02/12/2017 CONSULTATION REPORT REASON FOR CONSULTATION Rectal mass. HISTORY OF PRESENT ILLNESS This is an 87-year-old gentleman, whom we were asked to see for rectal mass. He was admitted with altered mental status changes and failure to thrive. He apparently was having some abdominal pain which he now completely denies and a CT scan was ordered which showed a 3.2 x 2.2 rectal mass/polyp. There has been no change in his bowel movements and there has been no rectal bleeding. PAST MEDICAL HISTORY Significant for hypertension, history of Parkinson's, COPD, reflux, and history of brain aneurysm. Please see med rec list. He is on Plavix routinely and has been on Solu-Medrol since in the hospital. PAST SURGICAL HISTORY Significant only for brain aneurysm clipping and apparently on his CT scan, they made a comment that he is status post cholecystectomy. ALLERGIES He has no known drug allergies. SOCIAL HISTORY There is no tobacco or alcohol use and he is wheelchair bound. FAMILY HISTORY Family history was limited due to his dementia as well as review of systems. PHYSICAL EXAMINATION VITAL SIGNS: Temperature is 97.3, heart rate 66, respiratory rate 16, blood pressure is 128/70. BMI is 27. GENERAL: He is in no acute distress. HEENT: Pupils are equal and react to light and accommodation. His extraocular muscles are intact. NECK: Without masses or bruits. LUNGS: Show good breath sounds bilaterally with equal air exchange. CARDIAC: Shows regular rate and rhythm without murmur. ABDOMEN: Soft, nontender, and nondistended with no organomegaly. EXTREMITIES: Without edema or cyanosis. There is a Kruger catheter in place. NEUROLOGIC: He does move all extremities and answers very simple questions. He certainly has some issues with long-term memory. Unit #: [id number] #: [id number] Patient: LAVONNE VIVAR DIAGNOSTIC STUDIES LABORATORY RESULTS: Albumin is 3.2. White count is 11.9, hemoglobin is 14.3. He did have a rise in his creatinine during this hospitalization up to 3.7, but it is now down to 1. IMAGING STUDIES: CT scan showed a 3.2 x 2.2 cm rectal mass/polyp. OVERALL IMPRESSION This is an 87-year-old gentleman, who has multiple medical problems including Parkinson's, dementia, chronic obstructive pulmonary disease, and hypertension with a rectal mass. This is a difficult situation. I am not sure he can tolerate a bowel prep and the bigger question is what to do if it is a precancerous or cancerous polyp. Certainly, he is at high risk for low anterior resection or abdominoperineal resection. If the decision is to proceed with scopes, then we would recommend holding his Plavix and Lovenox in anticipation of a biopsy. Argument could be made for observation given his age and comorbidities and his decline in functional status. Further recommendations are to follow. Dictated by... David Fink III, M.D. VCL/didi TD: 02/13/2017 02:49 JOB #: [id number] CONSULTATION REPORT Page 1 of 1 X David Fink III, MD CONSULTATION REPORT
--- NOTE | ~2017-02-04 | FU ---
[facility] Nutrition Therapy DATE: 02/20/17 Patient: LAVONNE VIVAR Physician: KATHIE Address: [address] [facility] Room/Bed: [address] [place] [address], Zip: [place] [address] Admit Date: 02/04/17 Date of : [birth year] Height: 6 2 Weight: 194 88 NUTRITION MONITORING/FOLLOW-UP: Reason: LOS follow-up 87 y/o male admitted for acute respiratory failure, COPD Anthropometrics: ht: 6'2" wt: 194# (88 kg) BMI 24 -Admit weight 214# Labs: No updated labs. Meds: furosemide, lovenox, coreg, protonix, NaCl I&O's: 660/1100. BM 02/18 Skin: Previously noted, no change. No edema. Diet: Regular + Dental soft + [place] thickened liquids Assessment: Chart reviewed, events noted. Pt seen for LOS follow-up. RD internal review and audit compliance visited pt at bedside. Pt reports having a good appetite and says he has been eating well. He reports eating 100% of his breakfast. No supplements in [employer], but pt reports he has received Ensure pudding. RD will remain available. Dx: Decreased nutrient intake r/t current diagnosis/current condition, advanced age, suspected decreased appetite AEB pt report above/review of chart -ACTIVE/RESOLVING Intervention: 1. Regular + Dental + Comer thick liquids diet Monitoring, Evaluation and Goals: 1. Oral intake; advance diet and tolerate/consume >50% of meals and supplements -MET/IN PROGRESS 2. Weights; promote weight maintenance -IN PROGRESS Recommendations: 1. Continue current diet order as tolerated. 2. Encourage adequate intake of all meals and supplements. RD will f/u per protocol as pt is at mild nutritional risk. [facility] Nutrition Therapy DATE: 02/20/17 Patient: LAVONNE VIVAR Physician: KATHIE Address: [address] [facility] Room/Bed: [address] [place] [address], Zip: [place] [address] Admit Date: 02/04/17 Date of : [birth year] Height: 6 2 Weight: 194 88 Respectfully, YUMIKO GOMEZ, Nurse Specialist Jen Murillo, MELAB, LD [employer] and Nutrition[employer] Services [facility] cc: client file
--- NOTE | ~2017-02-04 | EKG ---
PATIENT: LAVONNE VIVAR UNIT #: [id number] Ventricular Rate: 61 BPM Atrial Rate: 61 BPM P-R Interval: 140 ms QRS Duration: 94 ms Q-T Interval: 444 ms QTC Calculation(Bezet): 446 ms P [place]: 98 degrees Calculated R [place]: -18 degrees Calculated T [place]: -19 degrees Diagnosis Line: Normal sinus rhythm Diagnosis Line: Nonspecific T wave abnormality Diagnosis Line: Abnormal ECG Diagnosis Line: When compared with ECG of 05-FEB-2017 05:51, Diagnosis Line: Vent. rate has decreased BY 35 BPM Diagnosis Line: RSR' pattern in V1 is no longer Present Diagnosis Line: Nonspecific T wave abnormality now evident in Diagnosis Line: Anterolateral leads Diagnosis Line: Confirmed by CANDELARIO BERGER MD ([id number]) on Diagnosis Line: 02/07/2017 8:54:20 AM INTERPRETING MD: ARASELI
--- NOTE | ~2017-02-04 | CO ---
Unit #: [id number] #: [id number] Patient: LAVONNE VIVAR [id number] [facility] [address] [place], [place] [address] [id number] I MR#: [id number] NAME: LAVONNE VIVAR ROOM: 571 Age: 87 Sex: M Admission Date: 02/04/2017 : 1930 Attending Physician: Consuelo Wells M.D. Primary Care Physician: Alexia Tobin M.D. 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 HISTORY OF PRESENT ILLNESS Mr. Lavonne Vivar is an 87-year-old gentleman, who was admitted to [facility] on the with mental confusion. The patient was also failing to thrive and having some abdominal pain. As a part of his workup, he had a CT scan of the abdomen demonstrating a 3.2 x 2.2 cm mass in the region of the rectosigmoid colon. There had been no associated rectal bleeding. The patient has a significant history of Parkinson disease, COPD, and reflux disease. As a result, the patient underwent a colonoscopy performed by Dr. Nish Del Valle. The patient was found to have diverticulosis of the left colon with a mass at 15 cm in the region of the rectosigmoid colon compatible with cancer. This was an apple-core type lesion. 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 I have been asked to see this patient regarding possible therapy. RECOMMENDATIONS Mr. Vivar has not completed a staging workup at this time. The patient has had a CT scan of the chest as recently as 11/2016, which demonstrated right lower rib fractures. The patient also has pleural thickening and stable granuloma. No obvious malignancy. CT scan of the abdomen as recently described. The patient would benefit from PET-CT imaging. This could demonstrate possible metastatic disease and give some idea of extent of disease within the bowel wall. Clinically and based on CT evidence, this appears to be localized. Assuming this as an early-stage lesion, I would favor primary resection and hopefully this could be done with laparoscopic guidance. I would not consider Mr. Vivar an ideal candidate for neoadjuvant therapy given his overall condition as well as the location and size of this lesion. The patient will have a tumor conference with Dr. Jimbo Velasquez on 02/16/2017 and he will discuss all of these issues with the family in detail. It is my pleasure to participate in his care. PAST MEDICAL HISTORY Remarkable for hypertension and Parkinson disease. History of brain aneurysm, COPD, and reflux disease. PAST SURGICAL HISTORY Remarkable for treatment of brain aneurysm. HOME MEDICATIONS Plavix 75 mg a day, Coreg 25 mg b.i.d., Sinemet, Requip 2 mg at bedtime, Unit #: [id number] #: [id number] Patient: LAVONNE VIVAR acetaminophen 500 mg q.6 hours, calcium, Lasix, potassium, nitroglycerin, and Zantac. ALLERGIES He has no known drug allergies. SOCIAL HISTORY The patient lives at home with his . He does not smoke nor drink and has no history of drug abuse. He states he has never smoked. FAMILY HISTORY Unremarkable. REVIEW OF SYSTEMS The patient has been slowed considerably by Parkinson disease, which he states has been present for some 3 years. PHYSICAL EXAMINATION VITAL SIGNS: Blood pressure 112/63, temperature 97.7, pulse 87, respirations 18, O2 saturations 91%. Height 6 feet 2 inches and weight 207 pounds and his BMI is 27. HEENT: Pupils equal, round, reactive to light and accommodation. Extraocular movements are within normal limits. GENERAL: The patient has very slow speech. He has possible mild confusion. NECK: There is no a palpable adenopathy of the head and neck field. LUNGS: Auscultated and found to be completely clear in all quadrants. CARDIOVASCULAR: Regular rate and rhythm without gallop or murmur. ABDOMEN: Soft, nontender. No evidence of mass. Bowel sounds are positive. INGUINAL: Unremarkable. EXTREMITIES: Without clubbing, cyanosis, or edema. RECTAL: Not performed. This patient has recently had a colonoscopy and digital rectal exam that did not feel the mass that was at 15 cm. DIAGNOSTIC STUDIES LABORATORY RESULTS: Glucose 86, creatinine 0.9, sodium 140, albumin 3.2. Liver enzymes completely within normal limits. WBC 14.6, hemoglobin 13.8, and platelet count 221,000. Approximately 65 minutes spent on discussing the case with the patient. Dictated by... Bernardo Sharpe M.D. WILBERT/didi TD: 02/16/2017 14:41 JOB #: [id number] CC: Leno Demarco Jr, M.D. Joseph M. Blandford Jr, M.D. Subhash P. Sheth, M.D. Kusum Nigam, M.D. Unit #: [id number] #: [id number] Patient: LAVONNE VIVAR CONSULTATION REPORT Page 1 of 1 X Bernardo Sharpe MD X CONSULTATION REPORT
--- NOTE | ~2017-02-04 | DS ---
Unit #: [id number] #: [id number] Patient: LAVONNE VVIAR [id number] [address] [id number] I MR#: [id number] NAME: LAVONNE VIVAR ROOM: 571 Age: 87 Sex: M Admission Date: 02/04/2017 : 1930 Discharge Date: 02/20/2017 Attending Physician: Consuelo Wells M.D. Primary Care Physician: Alexia Tobin M.D. DISCHARGE SUMMARY DISPOSITION Rehab facility. CONSULTATIONS DURING HOSPITALIZATION 1. Dr. Mihaela dOom and Dr. Martin from pulmonary services. 2. Dr. Carlin and Dr. Santizo from cardiology services. 3. Dr. Edward Vincent from urology services. 4. Dr. Velasquez from oncology services. 5. NELLY, Dr. James from surgery services. 6. Dr. Castañeda and Dr. Lorenz from renal services. FINAL DIAGNOSES 1. Altered mental status. On admission patient had altered mental status which has resolved, which was most likely secondary to toxic-metabolic encephalopathy. Patient has history of Parkinson disease. Seems to be stable from that aspect. This is his normal self. 2. Acute hypoxic respiratory failure and aspiration pneumonia. Patient was admitted to hospital with this diagnosis. Dr. Martin was consulted. Patient was started on IV clindamycin. Patient continued IV clindamycin until 02/07/17 when antibiotics were changed from clindamycin to Unasyn. Patient did have Enterococcus in his urine culture also. Patient has completed the course of antibiotics. His prednisone is being discontinued. He will continue nebulizer treatment at rehab facility and continue Robitussin if needed. Aspiration precaution needs to be done. Patient is very high risk for recurrent aspiration pneumonia. 3. Ventricular bigeminy. Patient did have some arrhythmias during hospitalization. Dr. Carlin and Dr. Santizo were consulted. Patient's medications were adjusted. No further cardiac workup is needed. Conservative therapy as per cardiology. Patient does have appointment with Dr. Carlin on 03/13/2017 at 12:30 p.m. 4. Hematuria. On 02/10/2017 the patient developed hematuria. Urology was consulted. CT scan of abdomen and pelvis was done which showed rectal cancer. [facility] consulted. Patient had a sigmoidoscopy done which confirmed the diagnosis of rectal cancer. Pathology was done. Patient was off Plavix for a little while before doing the biopsy. Biopsy does show high grade dysplasia. Had oncology, Dr. Sams was consulted and Dr. Velasquez had lengthy discussion with family and power of city attorney. The patient's power of city attorney is Nish Vivar. His phone number is [phone]. Diagnosis need for a repeat biopsy, surgery, colostomy and risk of bleeding and obstruction, infection, progression was discussed at length with the power of Unit #: [id number] #: [id number] Patient: LAVONNE VIVAR city attorney. It has been decided to wait for three months and then reevaluate accepting all the risks mentioned above. We will need appointment with [facility] again to reevaluate in three months or so. 5. Parkinson disease. Patient does have history of Parkinson disease. He is high risk for fall. Patient will continue home medications. 6. Urinary tract infection. Patient did have urine culture positive for Enterococcus. He has completed the course of antibiotics. Hematuria has resolved. 7. Acute kidney injury. Patient did have acute kidney injury during hospitalization. It was possibly prerenal. The patient's renal functions have improved. We need to continue to observe as outpatient, maybe repeat labs in three to four days. DIAGNOSTIC STUDIES LABORATORY WORKUP: On discharge glucose 113; CBC shows WBC 16.7, hemoglobin 13.6, hematocrit 41.3 and platelet count of 174; BMP shows sodium 141, potassium 3.9, chloride 102, BUN 18, creatinine 0.8. CEA was done which is elevated to 5.6. OPERATION: Procedure performed during hospitalization was sigmoidoscopy which showed rectal mass, diverticulosis of the left colon. Mass is at 15 cm, compatible with cancer. IMAGING: CT scan of the abdomen which was done on 02/11/2017 showed polypoid structure within the rectum along the right side measuring about 3.2 x 2.2 cm. PHYSICAL EXAMINATION ON DISCHARGE VITAL SIGNS: Blood pressure is 121/58. Respiratory rate 18. Pulse is 59. Temperature 97.5. CHEST: Has fair air entry. Rhonchi are present. CVS: S1, S2 positive. ABDOMEN: Soft. EXTREMITIES: Edema is present. DISCHARGE INSTRUCTIONS 1. Patient is being discharged to rehab facility in stable condition. 2. Medication as per med rec. 3. PT/OT at rehab. 4. Dr. Consuelo Wells to follow the patient at rehab. 5. Follow up with [facility], Dr. James, in two to three months for reevaluation of rectal mass. 6. Please inform family about discharge to rehab. 7. Follow up with Dr. Carlin on 03/13/17 at 12:30. 8. CBC and BMP to be done in three to four days. Dictated by... Consuelo Wells M.D. JOSE/mohinder TD: 02/20/2017 16:32 JOB #: [id number] Unit #: [id number] #: [id number] Patient: LAVONNE VIVAR DISCHARGE SUMMARY Page 1 of 1 X Consuelo Wells MD X DISCHARGE SUMMARY
[~2017-02-04 19:45] MED LIST: ACETAMINOPHEN PO; CALCIUM 500 +1 EAC2 PO; CLOPIDOGREL75 MG PO; COREG PO; HYDROCHLOROTHIA25 MG PO; REQUIP XL2 MG PO; SINEMET-25/1001 TA1 PO
[2017-02-04 20:40] LABS: BASOPHIL# 0.1 X10e3 (0-0.3); BASOPHIL% 0.9 % (0-2.5); EOSINOPHIL% 0.4 % (0.0-7.0); HEMATOCRIT 44.5 % (38.0-50.0); HEMOGLOBIN 14.5 gm/dL (13.0-16.0); LYMPHOCYTE# 1.7 X10e3 (1.0-3.5); LYMPHOCYTE% 19.9 % (17.0-45.0); MEAN CORPUSCULAR HEMOGLOBIN 29.4 PG (28-34); MEAN CORPUSCULAR HGB CONC 32.7 g/dL (30-36); MEAN PLATELET VOLUME 9.1 FL (6.5-11.5); MONOCYTE# 1.2 X10e3 (0-1.0); MONOCYTE% 13.8 % (3.0-12.0); NEUTROPHIL# 5.7 X10e3 (1.5-7.1); PLATELET COUNT 173 X10e3 (140-420); RED BLOOD COUNT 4.94 X10e (3.90-5.60); WHITE BLOOD COUNT 8.7 X10e3 (4.0-10.5)
[2017-02-04 20:43] LABS: DIFF IND NO
[2017-02-04 20:46] LABS: POC - CKMB <1.0 ng/mL (0.0-7.9); POC - TROPONIN <0.05 ng/mL (<=0.05)
[2017-02-04 20:52] LABS: INR 1.1; PROTHROMBIN TIME (PATIENT) 11.9 SECONDS (10.0-11.7)
[2017-02-04 21:00] LABS: ALBUMIN SERUM 3.2 g/dL (3.5-5.0); BILIRUBIN, DIRECT 0.2 mg/dL (0.0-0.2); BILIRUBIN,INDIRECT 0.7 mg/dL (0.0-0.9); BILIRUBIN,TOTAL 0.9 mg/dL (0.2-2.0); CALCIUM SERUM 8.5 mg/dL (8.4-10.2); CREATININE SERUM 1.5 mg/dL (0.6-1.4); GLOM FILT RATE Estimated 41.6 mL/min (>60); POTASSIUM 3.7 mmol/L (3.5-5.1); PROTEIN TOTAL SERUM 6.5 g/dL (6.0-8.3)
[2017-02-05 00:07] LABS: POC - CKMB <1.0 ng/mL (0.0-7.9); POC - TROPONIN <0.05 ng/mL (<=0.05)
[2017-02-05] MEDS ORDERED: PEPCID AC20 M2 PO (01:25)
[2017-02-05] MEDS ORDERED: LASIX20 MG PO (01:26)
[2017-02-05] MEDS ORDERED: KLOR-CON PO (01:27)
[2017-02-05 08:39] LABS: CK TOTAL 26 IU/L (36-174)
[2017-02-05] MEDS ORDERED: NITROGLYGERIN0.4 MG SL (09:09)
[2017-02-05] MEDS ORDERED: ZANTAC150 M1 PO (09:12)
[2017-02-05 09:30] LABS: CHOLESTEROL 118 mg/dL (0-200); HDL CHOLESTEROL 39 mg/dL (29-75); LDL CHOLESTEROL 67 mg/dL (-130); LDL/HDL RATIO 2 RATIO (0-4); TRIGLYCERIDES 62 mg/dL (10-160)
[2017-02-05 23:41] LABS: URINE APPEARANCE TURBID; URINE COLOR YELLOW
[2017-02-05 23:42] LABS: URINE BILIRUBIN NEG (NEG); URINE GLUCOSE 50 MG/DL (NEG); URINE KETONE NEG (NEG); URINE LEUKOCYTE ESTERASE 3+ (NEG); URINE NITRATE NEG (NEG); URINE PROTEIN 3+ (NEG); URINE UROBILINOGEN NORM (NEG)
[2017-02-05 23:43] LABS: URINE BACTERIA AUWI 4+ (NEGATIVE); URINE BLOOD 2+ (NEG); URINE SQUAMOUS EPITHELIAL CELL OCCAS /[HPF]; UWBCS1 AUWI INNUM (0-5)
[2017-02-06 05:20] LABS: HEMATOCRIT 41.6 % (38.0-50.0); HEMOGLOBIN 13.4 gm/dL (13.0-16.0); MEAN CELL VOLUME 89.7 FL (83-96); MEAN CORPUSCULAR HEMOGLOBIN 28.9 PG (28-34); MEAN CORPUSCULAR HGB CONC 32.3 g/dL (30-36); MEAN PLATELET VOLUME 9.4 FL (6.5-11.5); RED BLOOD COUNT 4.64 X10e (3.90-5.60); RED CELL DISTRIBUTION WIDTH 15.2 % (11.0-15.5); WHITE BLOOD COUNT 7.1 X10e3 (4.0-10.5)
[2017-02-06 05:50] LABS: BUN/CREATININE RATIO 15.26; CALCIUM SERUM 8.5 mg/dL (8.4-10.2); CREATININE SERUM 1.9 mg/dL (0.6-1.4); GLOM FILT RATE Estimated 31.2 mL/min (>60); POTASSIUM 4.2 mmol/L (3.5-5.1)
[2017-02-07 20:41] LABS: BASOPHIL% 0.3 % (0-2.5); HEMATOCRIT 42.3 % (38.0-50.0); HEMOGLOBIN 13.6 gm/dL (13.0-16.0); LYMPHOCYTE# 0.7 X10e3 (1.0-3.5); LYMPHOCYTE% 5.9 % (17.0-45.0); MEAN CELL VOLUME 89.5 FL (83-96); MEAN CORPUSCULAR HEMOGLOBIN 28.8 PG (28-34); MEAN CORPUSCULAR HGB CONC 32.2 g/dL (30-36); MEAN PLATELET VOLUME 9.2 FL (6.5-11.5); MONOCYTE# 0.9 X10e3 (0-1.0); MONOCYTE% 7.1 % (3.0-12.0); NEUTROPHIL# 10.5 X10e3 (1.5-7.1); NEUTROPHIL% 86.7 % (40-75); PLATELET COUNT 200 X10e3 (140-420); RED BLOOD COUNT 4.72 X10e (3.90-5.60); RED CELL DISTRIBUTION WIDTH 15.3 % (11.0-15.5)
[2017-02-07 20:42] LABS: DIFF IND NO; WHITE BLOOD COUNT 12.1 X10e3 (4.0-10.5)
[2017-02-07 21:08] LABS: BUN/CREATININE RATIO 16.66; CALCIUM SERUM 8.6 mg/dL (8.4-10.2); CREATININE SERUM 3.3 mg/dL (0.6-1.4); POTASSIUM 5.3 mmol/L (3.5-5.1)
[2017-02-08 08:07] LABS: BUN/CREATININE RATIO 15.4; CALCIUM SERUM 8.9 mg/dL (8.4-10.2); CREATININE SERUM 3.7 mg/dL (0.6-1.4); MAGNESIUM 2.3 mg/dL (1.6-3.0); POTASSIUM 5.3 mmol/L (3.5-5.1)
[2017-02-08 20:00] LABS: URINE APPEARANCE CLEAR; URINE BILIRUBIN NEG (NEG); URINE BLOOD 2+ (NEG); URINE COLOR YELLOW; URINE GLUCOSE NEG (NEG); URINE KETONE NEG (NEG); URINE LEUKOCYTE ESTERASE 3+ (NEG); URINE PH 5.5 (5-8); URINE PROTEIN 2+ (NEG); URINE SPECIFIC GRAVITY 1.012 (1.003-1.035); URINE UROBILINOGEN 0.2 MG/DL (NEG)
[2017-02-08 20:04] LABS: CREATININE,RANDOM URINE 92 mg/dL; POTASSIUM,URINE RANDOM 27 mmol/L; SODIUM URINE RANDOM 73 mmol/L
[2017-02-08 20:15] LABS: URBCS1 AUWI 50-100 /[HPF] (0-2)
[2017-02-08 20:16] LABS: CULTURE INDICATED? YES; URINE BACTERIA AUWI 1+ (NEGATIVE); URINE NITRATE POS (NEG); URINE SQUAMOUS EPITHELIAL CELL OCCAS /[HPF]; UWBCS1 AUWI INNUM (0-5)
[2017-02-09 06:59] LABS: BASOPHIL% 0.1 % (0-2.5); DIFF IND YES; HEMATOCRIT 41.8 % (38.0-50.0); HEMOGLOBIN 13.4 gm/dL (13.0-16.0); LYMPHOCYTE% 10.5 % (17.0-45.0); MEAN CELL VOLUME 89.4 FL (83-96); MEAN CORPUSCULAR HEMOGLOBIN 28.8 PG (28-34); MEAN CORPUSCULAR HGB CONC 32.2 g/dL (30-36); MEAN PLATELET VOLUME 9.3 FL (6.5-11.5); MONOCYTE# 0.7 X10e3 (0-1.0); MONOCYTE% 7.9 % (3.0-12.0); NEUTROPHIL# 7.7 X10e3 (1.5-7.1); NEUTROPHIL% 81.5 % (40-75); PLATELET COUNT 207 X10e3 (140-420); RED BLOOD COUNT 4.67 X10e (3.90-5.60); RED CELL DISTRIBUTION WIDTH 15.2 % (11.0-15.5); WHITE BLOOD COUNT 9.5 X10e3 (4.0-10.5)
[2017-02-09 07:26] LABS: CALCIUM SERUM 8.8 mg/dL (8.4-10.2); GLOM FILT RATE Estimated 29.4 mL/min (>60); POTASSIUM 4.9 mmol/L (3.5-5.1)
[2017-02-09 08:00] LABS: ANISOCYTOSIS SL; PLATELET ESTIMATE NORMAL (NORMAL)
[2017-02-10 07:56] LABS: CALCIUM SERUM 9.1 mg/dL (8.4-10.2); GLOM FILT RATE Estimated 67.9 mL/min (>60); POTASSIUM 5.1 mmol/L (3.5-5.1)
[2017-02-10 10:22] LABS: BASOPHIL# 0.1 X10e3 (0-0.3); BASOPHIL% 0.5 % (0-2.5); DIFF IND NO; EOSINOPHIL# 0.1 X10e3 (0-0.7); EOSINOPHIL% 1.2 % (0.0-7.0); HEMATOCRIT 41.1 % (38.0-50.0); HEMOGLOBIN 13.2 gm/dL (13.0-16.0); LYMPHOCYTE# 1.7 X10e3 (1.0-3.5); LYMPHOCYTE% 13.4 % (17.0-45.0); MEAN CELL VOLUME 90.8 FL (83-96); MEAN CORPUSCULAR HEMOGLOBIN 29.1 PG (28-34); MEAN PLATELET VOLUME 9.7 FL (6.5-11.5); MONOCYTE# 0.9 X10e3 (0-1.0); MONOCYTE% 7.2 % (3.0-12.0); NEUTROPHIL# 9.8 X10e3 (1.5-7.1); NEUTROPHIL% 77.7 % (40-75); PLATELET COUNT 203 X10e3 (140-420); RED BLOOD COUNT 4.53 X10e (3.90-5.60); RED CELL DISTRIBUTION WIDTH 14.9 % (11.0-15.5); WHITE BLOOD COUNT 12.6 X10e3 (4.0-10.5)
[2017-02-10 14:39] LABS: BASOPHIL% 0.2 % (0-2.5); EOSINOPHIL% 0.3 % (0.0-7.0); HEMATOCRIT 44.5 % (38.0-50.0); HEMOGLOBIN 14.3 gm/dL (13.0-16.0); LYMPHOCYTE# 0.9 X10e3 (1.0-3.5); LYMPHOCYTE% 7.1 % (17.0-45.0); MEAN CORPUSCULAR HEMOGLOBIN 28.7 PG (28-34); MEAN CORPUSCULAR HGB CONC 32.2 g/dL (30-36); MEAN PLATELET VOLUME 8.9 FL (6.5-11.5); MONOCYTE# 0.6 X10e3 (0-1.0); MONOCYTE% 4.5 % (3.0-12.0); NEUTROPHIL# 11.6 X10e3 (1.5-7.1); NEUTROPHIL% 87.9 % (40-75); PLATELET COUNT 218 X10e3 (140-420); RED CELL DISTRIBUTION WIDTH 15.1 % (11.0-15.5); WHITE BLOOD COUNT 13.2 X10e3 (4.0-10.5)
[2017-02-10 14:49] LABS: DIFF IND NO
[2017-02-11 07:54] LABS: BUN/CREATININE RATIO 22.22; CALCIUM SERUM 9.6 mg/dL (8.4-10.2); CREATININE SERUM 0.9 mg/dL (0.6-1.4); GLOM FILT RATE Estimated 77.1 mL/min (>60); POTASSIUM 5.2 mmol/L (3.5-5.1)
[2017-02-12 05:28] LABS: HEMATOCRIT 44.9 % (38.0-50.0); HEMOGLOBIN 14.3 gm/dL (13.0-16.0); MEAN CELL VOLUME 90.9 FL (83-96); MEAN CORPUSCULAR HEMOGLOBIN 28.9 PG (28-34); MEAN CORPUSCULAR HGB CONC 31.8 g/dL (30-36); MEAN PLATELET VOLUME 9.4 FL (6.5-11.5); RED BLOOD COUNT 4.94 X10e (3.90-5.60); RED CELL DISTRIBUTION WIDTH 14.9 % (11.0-15.5); WHITE BLOOD COUNT 11.9 X10e3 (4.0-10.5)
[2017-02-12 06:35] LABS: CALCIUM SERUM 9.5 mg/dL (8.4-10.2); GLOM FILT RATE Estimated 67.9 mL/min (>60); POTASSIUM 4.5 mmol/L (3.5-5.1)
[2017-02-15 06:45] LABS: HEMATOCRIT 43.6 % (38.0-50.0); HEMOGLOBIN 13.8 gm/dL (13.0-16.0); MEAN CELL VOLUME 90.2 FL (83-96); MEAN CORPUSCULAR HEMOGLOBIN 28.5 PG (28-34); MEAN CORPUSCULAR HGB CONC 31.6 g/dL (30-36); MEAN PLATELET VOLUME 8.9 FL (6.5-11.5); RED BLOOD COUNT 4.83 X10e (3.90-5.60); RED CELL DISTRIBUTION WIDTH 14.6 % (11.0-15.5); WHITE BLOOD COUNT 14.6 X10e3 (4.0-10.5)
[2017-02-15 07:35] LABS: BUN/CREATININE RATIO 18.88; CALCIUM SERUM 9.5 mg/dL (8.4-10.2); CREATININE SERUM 0.9 mg/dL (0.6-1.4); GLOM FILT RATE Estimated 77.1 mL/min (>60); POTASSIUM 3.9 mmol/L (3.5-5.1)
[2017-02-16 06:54] LABS: BASOPHIL% 0.2 % (0-2.5); EOSINOPHIL% 0.3 % (0.0-7.0); HEMATOCRIT 41.8 % (38.0-50.0); HEMOGLOBIN 13.4 gm/dL (13.0-16.0); LYMPHOCYTE# 2.1 X10e3 (1.0-3.5); LYMPHOCYTE% 18.9 % (17.0-45.0); MEAN CORPUSCULAR HEMOGLOBIN 28.5 PG (28-34); MEAN CORPUSCULAR HGB CONC 32.1 g/dL (30-36); MEAN PLATELET VOLUME 8.8 FL (6.5-11.5); MONOCYTE# 0.6 X10e3 (0-1.0); MONOCYTE% 5.5 % (3.0-12.0); NEUTROPHIL# 8.3 X10e3 (1.5-7.1); NEUTROPHIL% 75.1 % (40-75); PLATELET COUNT 206 X10e3 (140-420); RED CELL DISTRIBUTION WIDTH 14.9 % (11.0-15.5); WHITE BLOOD COUNT 11.1 X10e3 (4.0-10.5)
[2017-02-16 06:56] LABS: DIFF IND YES
[2017-02-16 07:23] LABS: PLATELET ESTIMATE NORMAL (NORMAL)
[2017-02-18 05:39] LABS: HEMATOCRIT 41.3 % (38.0-50.0); HEMOGLOBIN 13.2 gm/dL (13.0-16.0); MEAN CELL VOLUME 89.7 FL (83-96); MEAN CORPUSCULAR HEMOGLOBIN 28.8 PG (28-34); MEAN CORPUSCULAR HGB CONC 32.1 g/dL (30-36); MEAN PLATELET VOLUME 8.9 FL (6.5-11.5); RED BLOOD COUNT 4.6 X10e (3.90-5.60); RED CELL DISTRIBUTION WIDTH 14.9 % (11.0-15.5)
[2017-02-18 05:41] LABS: WHITE BLOOD COUNT 19.6 X10e3 (4.0-10.5)
[2017-02-18 06:15] LABS: BUN/CREATININE RATIO 22.5; CALCIUM SERUM 8.5 mg/dL (8.4-10.2); CREATININE SERUM 0.8 mg/dL (0.6-1.4); GLOM FILT RATE Estimated 80.9 mL/min (>60); POTASSIUM 3.9 mmol/L (3.5-5.1)
[2017-02-19 06:08] LABS: HEMATOCRIT 41.3 % (38.0-50.0); HEMOGLOBIN 13.6 gm/dL (13.0-16.0); MEAN CELL VOLUME 89.4 FL (83-96); MEAN CORPUSCULAR HEMOGLOBIN 29.4 PG (28-34); MEAN CORPUSCULAR HGB CONC 32.9 g/dL (30-36); MEAN PLATELET VOLUME 8.8 FL (6.5-11.5); RED BLOOD COUNT 4.62 X10e (3.90-5.60); RED CELL DISTRIBUTION WIDTH 15.5 % (11.0-15.5); WHITE BLOOD COUNT 16.7 X10e3 (4.0-10.5)
== END 2017-02-20 20:41 | DRG 177 ==
LOC: CED 19:45 → C5C 22:00 → CEDOF 22:00 → CED 22:19 → CEDOF 22:19 → C5C 23:59
PROVIDERS: Emergency Medicine; Hospitalist; Internal Medicine Cardiovascular Disease; Internal Medicine Nephrology; Nurse Practitioner; Physician Assistant Medical; Surgery
PROC: 0DBN8ZX Excision of Sigmoid Colon, Via Natural or Artificial Opening Endoscopic, Diagnostic (ICD-10-PCS; principal; 2017-02-14 15:00)
DX: J69.0 Pneumonitis due to inhalation of food and vomit (principal); G92 Toxic encephalopathy; J96.01 Acute respiratory failure with hypoxia; N17.9 Acute kidney failure, unspecified; G20 Parkinson's disease; I11.0 Hypertensive heart disease with heart failure; I50.32 Chronic diastolic (congestive) heart failure; B95.2 Enterococcus as the cause of diseases classified elsewhere; C19 Malignant neoplasm of rectosigmoid junction; N39.0 Urinary tract infection, site not specified; J44.1 Chronic obstructive pulmonary disease with (acute) exacerbation; F02.80 Dementia in other diseases classified elsewhere, unspecified severity, without behavioral disturbance, psychotic disturbance, mood disturbance, and anxiety; R33.9 Retention of urine, unspecified; K21.9 Gastro-esophageal reflux disease without esophagitis; R00.0 Tachycardia, unspecified; R42 Dizziness and giddiness; Z87.891 Personal history of nicotine dependence; Z99.3 Dependence on wheelchair; R62.7 Adult failure to thrive; K57.30 Diverticulosis of large intestine without perforation or abscess without bleeding; Z87.440 Personal history of urinary (tract) infections; E86.0 Dehydration; E87.5 Hyperkalemia; R31.0 Gross hematuria; R94.31 Abnormal electrocardiogram [ECG] [EKG]
CPT/HCPCS: 36415; 71010; 74000; 74176; 74230; 80048; 80061; 80076; 81003; 82378; 82436; 82550; 82553; 82570; 82947; 83605; 83735; 83880; 84133; 84300; 84484; 84540; 85025; 85027; 85610; 87040; 87086; 87088; 87186; 88305; 89190; 92526; 92610; 92611; 93005; 93970; 94640; 94760; 96361; 96374; 97110; 97116; 97162; 97166; 97530; 97535; 99285; G8978-GP; G8979-GP; G8987-GO; G8988-GO; G8996-GN; G8997-GN; G8998-GN; J0295; J1650; J1940; J2920; J2930

== ENCOUNTER 2017-02-25 02:01 | Inpatient (IN) | payer MEDICARE ==
[~2017-02-25] VITALS: Ht 188 cm; Wt 91.6 kg
--- NOTE | ~2017-02-25 | DS ---
Unit #: [id number] #: [id number] Patient: LAVONNE VIVAR [id number] [address] [address] [id number] I MR#: [id number] NAME: LAVONNE VIVAR ROOM: 330 Age: 87 Sex: M Admission Date: 02/25/2017 : 1930 Discharge Date: 03/03/2017 Attending Physician: Humza Mccollum M.D. Primary Care Physician: Alexia Tobin M.D. DISCHARGE SUMMARY FINAL DIAGNOSES 1. Acute hypoxic respiratory failure. 2. Aspiration pneumonia. 3. Toxic metabolic encephalopathy. 4. Acute kidney injury. 5. Urinary tract infection. 6. Malnutrition. 7. Rectal mass, possible malignancy. 8. Parkinson disease. DISCHARGE MEDICATIONS 1. Albuterol nebulizer treatment q.i.d. 2. Flomax 0.4 mg daily. 3. Tylenol 500 q.6 p.r.n. 4. Robinul sublingual p.r.n. for congestion. 5. Requip 2 mg at bedtime. 6. Dulcolax, one p.r.n. for constipation. 7. Refresh eyedrops p.r.n. 8. Pepcid 20 mg b.i.d. 9. Sinemet 25/100, two tablets three times a day. 10. Aspirin 81 mg daily. 11. Protonix 40 mg daily. 12. Nitroglycerin on p.r.n. basis. CONSULTATION DURING HOSPITALIZATION 1. Dr. Mihaela Odom - Pulmonary Services. 2. Dr. James Lorenz - Renal Services. 3. [facility] consult. LAB WORKUP ON DISCHARGE Lab workup on discharge which was last done on February 28 - sodium 143, potassium 3.5, chloride 108, BUN 23, creatinine 0.8, WBC 5.2, hemoglobin 11.2, hematocrit 34.0 and platelet count of 139. Urine culture was positive for Klebsiella pneumonia, more than 100,000 colony. Glucose on discharge is 96. HOSPITAL COURSE Ms. Lavonne Vivar is an 87-year-old male who was readmitted to hospital after being discharged on February 20 to rehab. Patient was admitted with altered mental status, possible toxic metabolic encephalopathy. He was diagnosed with acute respiratory failure and severe sepsis. Patient was Unit #: [id number] #: [id number] Patient: LAVONNE VIVAR also diagnosed with UTI. Patient's prognosis is very poor. Condition was critical. Discussed with patient's family. They have decided for DNR status and comfort care. Patient's power of deputy county attorney is not in town at this time. Hospice was consulted. They cannot transfer the patient because power of deputy county attorney needs to be present and sign the documents. Patient will be discharged to senior care to continue comfort care. Patient's family is aware of poor prognosis. Discussed with them at length. Code status is DNR. DISCHARGE INSTRUCTIONS 1. Patient is being discharged to senior care. 2. DNR. 3. Comfort care. 4. Patient's family is very much aware of patient's poor prognosis. Dictated by... Leno Lin/cesilia TD: 03/03/2017 14:45 JOB #: [id number] DISCHARGE SUMMARY Page 1 of 1 X Consuelo Wells MD X DISCHARGE SUMMARY
--- NOTE | ~2017-02-25 | CO ---
Unit #: [id number] #: [id number] Patient: LAVONNE VIVAR [id number] [address] [address] [id number] I MR#: [id number] NAME: LAVONNE VIVAR ROOM: 330 Age: 87 Sex: M Admission Date: 02/25/2017 : 1930 Attending Physician: Humza Mccollum M.D. Primary Care Physician: Alexia Tobin M.D. Consultation Date: 02/25/2017 CONSULTATION REPORT REASON FOR CONSULTATION Hyperkalemia and acute kidney injury. HISTORY OF PRESENT ILLNESS Mr. Vivar is an 87-year-old male, who is rather frail at his baseline with Parkinson's and dementia, who was readmitted with failure to thrive from [facility]. We had seen him during his last admission that had been complicated by the diagnosis of aspiration pneumonia and some urinary retention with acute kidney injury as well. His acute kidney injury had improved completely with relief of obstruction with Kruger catheter placement. It looks like his Kruger catheter was removed prior to discharge and he represents with acute kidney injury again. A Kruger catheter was just placed here on the floor and he has already had about 2 L of urine drained thus far. The patient is very lethargic and not talking. He does not appear to be in any pain or distress, but this seems to be having trouble clearing his secretions. Urine does look infected and is almost milky in consistency. PAST MEDICAL HISTORY Significant for hypertension, diastolic congestive heart failure, Parkinson's with dementia, brain aneurysm, COPD, GERD, urinary tract infections, rectal mass with high-grade dysplasia. PAST SURGICAL HISTORY He has had a brain aneurysm. CURRENT MEDICATIONS Per the discharge summary from 02/20/2017 and via the [facility] rec are as follows; calcium plus vitamin D t.i.d., Lasix 20 mg b.i.d., Klor-Con 10 mEq daily, nitroglycerin sublingual p.r.n., Pepcid 20 mg once a day, Probiotic b.i.d., Protonix 40 mg a day, Robitussin DM p.r.n., baby aspirin daily, prednisone 10 mg a day, Flomax 0.4 mg a day, MiraLax and Correctol p.r.n., Dulcolax p.r.n., Plavix 75 mg a day, Coreg 6.25 mg b.i.d., Sinemet 2 tablets t.i.d., Requip 2 mg at bedtime, and Tylenol p.r.n. ALLERGIES He has no known drug allergies. FAMILY HISTORY Not available and likely noncontributory. SOCIAL HISTORY The patient was rehabbing at [facility]. There is no reported history of tobacco, alcohol, or drug use. Unit #: [id number] #: [id number] Patient: LAVONNE VIVAR REVIEW OF SYSTEMS A complete 12-point review of systems was attempted, but simply not able to be obtained with the patient being very lethargic and not being able to talk. He does not appear to be in any pain or distress. There have been no documented fevers. No swelling or rashes. No reports of vomiting or diarrhea here. Unless otherwise indicated, the review of systems was negative. PHYSICAL EXAMINATION VITAL SIGNS: The patient is afebrile, pulse 84, respiratory rate 22, blood pressure 121/76. GENERAL: This is a quiet 87-year-old male, lethargic, but in no acute distress. HEENT: Head is atraumatic and normocephalic. Eyes show pink conjunctivae with no scleral icterus. No nasal drainage or nosebleed. Oropharynx is dry. NECK: Shows no rigidity. HEART: Regular rate and rhythm with no murmur or rub appreciated. LUNGS: Have scattered upper rhonchi with difficulty in clearing secretions. Breathing is nonlabored at rest. ABDOMEN: Soft, nontender, and nondistended. No masses appreciated. EXTREMITIES: No lower extremity cyanosis or edema. SKIN: Dry with no rashes. MUSCULOSKELETAL: No joint effusions noted. NEUROLOGIC: The patient appears to have generalized weakness. LYMPHATIC: There is no neck or cervical lymphadenopathy. PSYCHIATRIC: Unable to be obtained. DIAGNOSTIC STUDIES LABORATORY RESULTS: BNP was just 48. Chemistry showed a sodium of 139, potassium was 6.1, chloride 98, bicarb 33, glucose 108, BUN 74, creatinine up to 2.9. CBC was unremarkable. The patient's final creatinine at discharge on 02/18/2017 was 0.8 after reaching a peak of 3.7 during that admission. ASSESSMENT AND PLAN 1. Acute kidney injury. This looks to be secondary to obstruction again, as he just had a Kruger placed with significant urine output. There may be a component of dehydration as well and his Lasix has been held. We will continue IV fluids and monitor his response to his relief of the obstruction with catheter placement. 2. Hyperkalemia. His home potassium has been stopped. This is likely related to his urinary retention and should improve after the Kruger catheter has been placed. 3. Urinary retention. We will continue his Kruger catheter and Flomax as ordered. 4. 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 5. Urinary tract infection. Dr. Odom is writing for antibiotics. 6. Parkinson's with dementia. 7. Recent aspiration pneumonia. 8. General frailty and advanced age. Certainly wonder if we are in a hospice type situation with Mr. Vivar. I would like to thank Dr. Wells for this consult and the opportunity to participate in evaluation and care of Mr. Vivar. Dictated by... Unit #: [id number] #: [id number] Patient: LAVONNE VIVAR James Lorenz Jr., M.D. SJK/didi TD: 02/25/2017 23:05 JOB #: [id number] CONSULTATION REPORT Page 1 of 1 X James Lorenz MD X CONSULTATION REPORT
--- NOTE | ~2017-02-25 | HP ---
Unit #: [id number] #: [id number] Patient: LAVONNE VIVAR [id number] [address] [address] [id number] I MR#: [id number] NAME: LAVONNE VIVAR ROOM: 330 Age: 87 Sex: M Admission Date: 02/25/2017 : 1930 Attending Physician: Humza Mccollum M.D. Primary Care Physician: Alexia Tobin M.D. HISTORY AND PHYSICAL CHIEF COMPLAINT Shortness of breath and altered mental status. HISTORY OF PRESENT ILLNESS Mr. Vivar is an 87-year-old male, who is very well known to me from previous admission. Patient was recently discharged from hospital on February 20, 2017 after having a lengthy stay. Patient was discharged to rehab facility. He was sent to ER because of shortness of breath and altered mental status. In ER, patient was found to have acute kidney injury. Patient is not able to provide any history at this time. Most of the history has been taken from ER and also from previous admission. PAST MEDICAL HISTORY 1. Parkinson disease. 2. COPD. 3. Hypertension. 4. History of brain aneurysm, status post clipping many years ago. 5. Reformed smoker. 6. History of GERD. PAST SURGICAL HISTORY History of brain aneurysm. ALLERGIES No known drug allergies. SOCIAL HISTORY Patient has been transferred from rehab facility. Patient is a reformed smoker. No alcohol abuse or drug abuse. FAMILY HISTORY Unremarkable. HOME MEDICATIONS 1. Calcium 500 plus D one tablet three times a day. 2. Lasix 20 mg twice a day. 3. Potassium 10 mEq daily. 4. Nitroglycerin 0.4 mg sublingual p.r.n. 5. Pepcid AC 20 mg once a day. 6. Probiotic 250 mg twice a day. 7. Protonix 40 mg daily. 8. Aspirin 81 mg daily. 9. Prednisone 10 mg daily. 10. Flomax 0.4 mg daily. Unit #: [id number] #: [id number] Patient: LAVONNE VIVAR 11. MiraLax 17 g daily. 12. Dulcolax on p.r.n. basis. 13. Plavix 75 mg daily. 14. Coreg 6.25 mg twice a day. 15. Sinemet 25/100 two tablets three times a day. 16. Requip 2 mg at bedtime. 17. Acetaminophen 500 mg q.6 p.r.n. REVIEW OF SYMPTOMS Review of symptoms is not obtainable at this time because of patient's altered mental status. PHYSICAL EXAMINATION GENERAL: Patient is being evaluated in room 330. VITAL SIGNS: Blood pressure at this time is 121/76, respiratory rate 22, pulse is 84, temperature 97.6, oxygen saturation is 91% on 3 L. HEENT: Head is normocephalic. Pupils are small. Patient's eyes are closed. He does not follow any commands. NECK: Neck seems to be supple. CHEST: Decreased air entry. Bilateral crackles are heard. CARDIOVASCULAR: S1, S2 positive. Regular rhythm. ABDOMEN: Soft. EXTREMITIES: Negative edema. CENTRAL NERVOUS SYSTEM: Patient is unresponsive at this time. DIAGNOSTIC STUDIES LABORATORY: Lab workup which was done in ER shows WBC 6.7, hemoglobin 14, hematocrit 42.5, platelet count 155,000. Sodium 139, potassium 6.1, chloride 98, BUN 74, creatinine 2.9. BNP 48. ABG on 3 L shows pH 7.43, pCO2 of 51.4, pO2 of 65.5, oxygen saturation is 91.3%. Troponin is less than 0.05. IMAGING: Chest x-ray results are still pending. ASSESSMENT Patient is being admitted to telemetry unit with: 1. Altered mental status, possible toxic metabolic encephalopathy. 2. Possible sepsis. 3. Acute renal failure, possible obstructive. 4. Hyperkalemia, secondary to above. 5. Acute hypoxic/hypercarbic respiratory failure. 6. Recurrent aspiration pneumonia possible. 7. Chronic obstructive pulmonary disease. 8. Urinary tract infection. 9. Parkinson disease. 10. Rectal mass. PLAN Plan is admit to telemetry unit. Dr. Lorenz from renal services has been consulted. Kruger catheter has been placed and patient had almost more than 1 L urine output. Urinalysis and culture is being done. Repeat labs will be done in a little bit. Dr. Odom has been consulted. IV antibiotics are being started for possible pneumonia. Lovenox and Pepcid for deep venous thrombosis and peptic ulcer preventive therapy. Mini neb treatment q.i.d. Home medications have been reviewed and adjusted. We are trying to contact patient's daughter and son and . So far, have not received a call back. Patient's condition is poor and prognosis is poor. Please refer to progress note for further orders. Unit #: [id number] #: [id number] Patient: LAVONNE VIVAR Dictated by Leno Lin TD: 02/25/2017 11:54 JOB #: [id number] HISTORY AND PHYSICAL Page 1 of 1 X Consuelo Wells MD X HISTORY AND PHYSICAL
--- NOTE | ~2017-02-25 | EKG ---
PATIENT: LAVONNE VIVAR UNIT #: [id number] Ventricular Rate: 73 BPM Atrial Rate: 73 BPM P-R Interval: 146 ms QRS Duration: 96 ms Q-T Interval: 390 ms QTC Calculation(Bezet): 429 ms P [place]: 27 degrees Calculated R [place]: -16 degrees Calculated T [place]: 4 degrees Diagnosis Line: Sinus rhythm with occasional Premature ventricular Diagnosis Line: complexes Diagnosis Line: Otherwise normal ECG Diagnosis Line: When compared with ECG of 06-FEB-2017 07:12, Diagnosis Line: Premature ventricular complexes are now Present Diagnosis Line: Nonspecific T wave abnormality no longer evident Diagnosis Line: in Lateral leads Diagnosis Line: Confirmed by MIC STUART MD ([id number]) on Diagnosis Line: 02/25/2017 12:32:51 PM INTERPRETING MD: NARCISO KNOWLES
--- NOTE | ~2017-02-25 | CR72 ---
[facility] A Service of [facility] RADIOLOGY TEXT RESULTS PATIENT: LAVONNE VIVAR LOCATION: [facility] 330- : 31 UNIT #: [id number] AGE: [address]: Humza Mccollum MD SEX: M ORDER DR: [id number] [facility] [address] [place], [place] [address] [id number] I MR#: [id number] #: [id number] NAME: LAVONNE VIVAR : 1930 SEX: M STUDY DATE/TIME: 02/25/2017 11:14 [facility]: [facility] STUDY DESCRIPTION: CR Chest Single View Portable Attending Physician: Humza Mccollum M.D. Ordering Physician: Humza Mccollum M.D. Primary Care Physician: Alexia Tobin M.D. MEDICAL IMAGING REPORT This report is preliminary unless electronic signature is present EXAM Portable chest 02/25 INDICATIONS Increasing shortness of air today. History of hypertension. FINDINGS AP portable chest compared with earlier today. Heart size stable. Infiltrates in the right [id number] lung and at the left base are not appreciably changed. There are small bilateral effusions. No pneumothorax. Dictated by... Nick Kenny Jr., M.D. THIS IS AN ELECTRONICALLY VERIFIED REPORT Nick Kenny Jr., M.D. at 02/26/2017 7:19 AM DICKSON/lobo TD: 02/25/2017 20:09 JOB #: [id number] MEDICAL IMAGING REPORT Page 1 of 1 COPY
--- NOTE | ~2017-02-25 | CR72 ---
[facility] A Service of [facility] RADIOLOGY TEXT RESULTS PATIENT: LAVONNE VIVAR LOCATION: [facility] : 31 UNIT #: [id number] AGE: [address]: Humza Mccollum MD SEX: M ORDER DR: [id number] [facility] [address] [place], [place] [address] [id number] I MR#: [id number] Acc #: [id number] NAME: LAVONNE VIVAR : 1930 SEX: M STUDY DATE/TIME: 02/25/2017 2:58 UNIT: [address] ROOM: [facility] STUDY DESCRIPTION: CR Chest Single View Portable Attending Physician: Humza Mccollum M.D. Ordering Physician: Nikos Bateman M.D. Primary Care Physician: Alexia Tobin M.D. MEDICAL IMAGING REPORT This report is preliminary unless electronic signature is present EXAM AP portable chest 02/25/2017 HISTORY Shortness of breath today. COMPARISON AP portable chest 02/14/2017. CT Abdomen lung windows 02/11/2017. FINDINGS Suspected mild right basilar atelectasis or infiltrate superimposed upon chronic bibasilar scarring. The pleural calcifications seen over the right lower thorax is unchanged from prior. Stable mild cardiac enlargement. No pleural effusion is seen. IMPRESSION 1. Probable mild right basilar atelectasis or infiltrate superimposed upon chronic interstitial changes. 2. Calcified pleural plaquing in the right lower thorax demonstrated to better advantage on previous CT chest. 3. Stable mild cardiac enlargement. Dictated by... Eunice Hawk M.D. THIS IS AN ELECTRONICALLY VERIFIED REPORT Eunice Hawk M.D. at 02/25/2017 9:58 PM [facility]/yvonne TD: 02/25/2017 12:06 JOB #: [id number] [facility] A Service [facility] RADIOLOGY TEXT RESULTS PATIENT: LAVONNE VIVAR LOCATION: [facility] 330 : 31 UNIT #: [id number] AGE: [address]: Humza Mccollum MD SEX: M ORDER DR: MEDICAL IMAGING REPORT Page 1 of 1 COPY
--- NOTE | ~2017-02-25 | CO ---
Unit #: [id number] #: [id number] Patient: LAVONNE VIVAR [id number] [address] [address] [id number] I MR#: [id number] NAME: LAVONNE VIVAR ROOM: 330 Age: 87 Sex: M Admission Date: 02/25/2017 : 1930 Attending Physician: Humza Mccollum M.D. Primary Care Physician: Alexia Tobin M.D. Consultation Date: 02/25/2017 CONSULTATION REPORT REASON FOR CONSULT ICU management. HISTORY OF PRESENT ILLNESS This is an 87-year-old male with past medical history significant for Parkinson's disease, hypertension, who was just discharged from our hospital to rehab a few days ago after a prolonged admission for altered mental status, UTI, aspiration pneumonia, and rectal mass. Last admission, patient presented with altered mental status. However, that improved significantly and quickly back to baseline. He was transferred to rehab in fairly okay condition. Patient was found to have change in his mental status over the last 24 hours. There was no reported fever; however, there is a lack of communication with the [facility] and emergency room. Patient was found to have a potassium of 6.1 and creatinine 2.9 and both are significantly different from baseline. He is currently very lethargic with significant secretions in his mouth. Last admission, patient was found also to have bladder retention and he needed Kruger for extended period of time. PAST MEDICAL HISTORY 1. Parkinson disease. 2. Hypertension. 3. Dementia. 4. Brain aneurysm. 5. Rectal mass, was found to be dysplasia. PAST SURGICAL HISTORY 1. Brain aneurysm surgery. 2. Rectal mass biopsy. SOCIAL HISTORY No history of alcohol, drug abuse, or smoking. The patient lives normally with his , but recently he was at the [facility]. FAMILY HISTORY Noncontributory to his condition. ALLERGIES No known drug allergies. HOME MEDICATIONS 1. Plavix. 2. Hydrochlorothiazide. Unit #: [id number] #: [id number] Patient: LAVONNE VIVAR 3. Coreg. 4. Requip. 5. Calcium. PHYSICAL EXAMINATION GENERAL: The patient appears lethargic and confused. VITAL SIGNS: Blood pressure 107/62, respiratory rate 16, O2 saturation 96% on 3 L nasal cannula. HEENT: Atraumatic, normocephalic. PERRLA. EOMI. NECK: Supple. No JVD. No lymphadenopathy. CHEST: Bilateral coarse rhonchi. HEART: S1, S2. No murmur, gallops, or rubs. ABDOMEN: Soft, distended at the lower part, probably due to bladder retention. No hepatosplenomegaly. EXTREMITIES: No edema or cyanosis. SKIN: No rashes. CENTRAL NERVOUS SYSTEM: The patient again is lethargic, but he is moving extremities to painful stimuli. He opened his eyes to verbal and also stimuli, but he does not answer questions. DIAGNOSTIC STUDIES LABORATORY: Creatinine 2.9, potassium 6.1. White blood count 6.7, hemoglobin 14. IMAGING: Chest x-ray is consistent with right-sided infiltrate. ASSESSMENT 1. Altered mental status. 2. Rule out severe sepsis. Lactic acid is pending at the time of dictation. 3. Rule out urinary tract infection. 4. Aspiration pneumonia. 5. Acute on chronic kidney disease. 6. Hyperkalemia. 7. Parkinson disease. 8. Rectal dysplasia. PLAN 1. Patient is ill-appearing and he needs to be transferred to the intensive care unit. Will obtain STAT ABG and lactic acid. 2. Will continue IV (1) , but this needs to be adjusted once his lactic acid is back. 3. Broad-spectrum antibiotics to cover for urinary tract infection and pneumonia but the blood culture and urinalysis needs to be obtained. 4. Will keep NPO pending further evaluation and management. 5. Deep venous thrombosis prophylaxis. I would like to thank you for allowing me to be a part of this patient's care. Dictated by... Leno Conklin Unit #: [id number] #: [id number] Patient: LAVONNE VIVAR TD: 02/25/2017 11:33 JOB #: [id number] CONSULTATION REPORT Page 1 of 1 X MIGDALIA TALBERT MD CONSULTATION REPORT
[~2017-02-25 02:01] MED LIST changes: +KLOR-CON PO; +LASIX20 MG PO; +NITROGLYGERIN0.4 MG SL; +PEPCID AC20 M2 PO; +ZANTAC150 M1 PO
[2017-02-25 02:53] LABS: ARTERIAL BLD GAS O2 SATURATION 93.8 % (90.0-100.0); ARTERIAL BLOOD GAS CARBOXY HB 1.1 %sat (0.0-9.0); ARTERIAL BLOOD GAS HCO3 33.7 mmol/L; ARTERIAL BLOOD GAS MET HB 0.5 %sat (0.0-2.0); ARTERIAL BLOOD GAS pH 7.418 (7.350-7.450)
[2017-02-25 02:54] LABS: ARTERIAL BLOOD GAS ALLEN TEST NORMAL; ARTERIAL BLOOD GAS ART SITE LEFT RADIAL; ARTERIAL BLOOD GAS DELIVERY NASAL CANNULA; ARTERIAL BLOOD GAS PCO2 52.2 mmHg (35.0-45.0); ARTERIAL BLOOD GAS PO2 75.5 mmHg (80.0-100); ARTERIAL DRAW? YES
[2017-02-25 04:10] LABS: BASOPHIL% 0.4 % (0-2.5); EOSINOPHIL% 0.3 % (0.0-7.0); HEMATOCRIT 42.5 % (38.0-50.0); LYMPHOCYTE# 0.8 X10e3 (1.0-3.5); LYMPHOCYTE% 12.2 % (17.0-45.0); MEAN CELL VOLUME 89.9 FL (83-96); MEAN CORPUSCULAR HEMOGLOBIN 29.5 PG (28-34); MEAN CORPUSCULAR HGB CONC 32.9 g/dL (30-36); MEAN PLATELET VOLUME 9.1 FL (6.5-11.5); MONOCYTE# 0.7 X10e3 (0-1.0); MONOCYTE% 10.8 % (3.0-12.0); NEUTROPHIL# 5.1 X10e3 (1.5-7.1); NEUTROPHIL% 76.3 % (40-75); PLATELET COUNT 155 X10e3 (140-420); RED BLOOD COUNT 4.73 X10e (3.90-5.60); RED CELL DISTRIBUTION WIDTH 16.1 % (11.0-15.5); WHITE BLOOD COUNT 6.7 X10e3 (4.0-10.5)
[2017-02-25 04:14] LABS: POC - CKMB 1.4 ng/mL (0.0-7.9); POC - TROPONIN <0.05 ng/mL (<=0.05)
[2017-02-25 04:19] LABS: DIFF IND NO
[2017-02-25 04:33] LABS: ALBUMIN SERUM 3.2 g/dL (3.5-5.0); BILIRUBIN, DIRECT 0.3 mg/dL (0.0-0.2); BILIRUBIN,INDIRECT 0.4 mg/dL (0.0-0.9); BILIRUBIN,TOTAL 0.7 mg/dL (0.2-2.0); BUN/CREATININE RATIO 25.51; CALCIUM SERUM 9.8 mg/dL (8.4-10.2); CREATININE SERUM 2.9 mg/dL (0.6-1.4); GLOM FILT RATE Estimated 18.7 mL/min (>60)
[2017-02-25 04:35] LABS: POTASSIUM 6.1 mmol/L (3.5-5.1)
[2017-02-25] MEDS ORDERED: PEPCID AC20 M2 PO (06:19)
[2017-02-25] MEDS ORDERED: PROBIOTIC250 MG PO (06:21)
[2017-02-25] MEDS ORDERED: PROTONIX40 M1 PO (06:22)
[2017-02-25] MEDS ORDERED: GUAIASORB DM L118 ML PO (06:24)
[2017-02-25] MEDS ORDERED: ASPIRIN81 MG PO (06:24)
[2017-02-25] MEDS ORDERED: FLOMAX0.4 M1 PO (06:25)
[2017-02-25] MEDS ORDERED: PREDNISONE10 MG PO (06:25)
[2017-02-25] MEDS ORDERED: CORRECTOL5 M2 PO (06:26)
[2017-02-25] MEDS ORDERED: MIRALAX17 GM PO (06:27)
[2017-02-25] MEDS ORDERED: DULCOLAX10 MG PR (06:28)
[2017-02-25 10:40] LABS: ARTERIAL BLD GAS O2 SATURATION 91.3 % (90.0-100.0); ARTERIAL BLOOD GAS CARBOXY HB 1.1 %sat (0.0-9.0); ARTERIAL BLOOD GAS HCO3 34.3 mmol/L; ARTERIAL BLOOD GAS MET HB 0.8 %sat (0.0-2.0); ARTERIAL BLOOD GAS pH 7.433 (7.350-7.450)
[2017-02-25 10:43] LABS: ARTERIAL BLOOD GAS ALLEN TEST NORMAL; ARTERIAL BLOOD GAS ART SITE LEFT RADIAL; ARTERIAL BLOOD GAS PCO2 51.4 mmHg (35.0-45.0); ARTERIAL BLOOD GAS PO2 65.6 mmHg (80.0-100); ARTERIAL DRAW? YES
[2017-02-25 12:55] LABS: ARTERIAL BLOOD GAS DELIVERY NASAL CANNULA
[2017-02-25 13:27] LABS: URINE APPEARANCE TURBID; URINE BILIRUBIN NEG (NEG); URINE BLOOD 1+ (NEG); URINE COLOR YELLOW; URINE GLUCOSE NEG (NEG); URINE KETONE NEG (NEG); URINE LEUKOCYTE ESTERASE 3+ (NEG); URINE NITRATE NEG (NEG); URINE PH 7.5 (5-8); URINE PROTEIN 2+ (NEG); URINE SPECIFIC GRAVITY 1.013 (1.003-1.035)
[2017-02-25 13:29] LABS: URINE BACTERIA AUWI 4+ (NEGATIVE); URINE SQUAMOUS EPITHELIAL CELL MOD /[HPF]; UWBCS1 AUWI INNUM (0-5)
[2017-02-25 14:51] LABS: BUN/CREATININE RATIO 27.03; CREATININE SERUM 2.7 mg/dL (0.6-1.4); GLOM FILT RATE Estimated 20.4 mL/min (>60)
[2017-02-25 14:52] LABS: CALCIUM SERUM 9.5 mg/dL (8.4-10.2); POTASSIUM 5.4 mmol/L (3.5-5.1)
[2017-02-26 05:22] LABS: HEMATOCRIT 31.3 % (38.0-50.0); MEAN CELL VOLUME 90.5 FL (83-96); MEAN CORPUSCULAR HEMOGLOBIN 29.4 PG (28-34); MEAN CORPUSCULAR HGB CONC 32.5 g/dL (30-36); MEAN PLATELET VOLUME 9.3 FL (6.5-11.5); RED BLOOD COUNT 3.46 X10e (3.90-5.60); RED CELL DISTRIBUTION WIDTH 15.7 % (11.0-15.5); WHITE BLOOD COUNT 7.9 X10e3 (4.0-10.5)
[2017-02-26 06:10] LABS: ALBUMIN SERUM 2.4 g/dL (3.5-5.0); BILIRUBIN,TOTAL 1.1 mg/dL (0.2-2.0); BUN/CREATININE RATIO 32.66; CALCIUM SERUM 8.7 mg/dL (8.4-10.2); CREATININE SERUM 1.5 mg/dL (0.6-1.4); GLOM FILT RATE Estimated 41.6 mL/min (>60); PROTEIN TOTAL SERUM 5.5 g/dL (6.0-8.3)
[2017-02-26 06:21] LABS: HEMOGLOBIN 10.2 gm/dL (13.0-16.0)
[2017-02-27 07:10] LABS: CALCIUM SERUM 8.3 mg/dL (8.4-10.2); GLOM FILT RATE Estimated 67.9 mL/min (>60); POTASSIUM 3.6 mmol/L (3.5-5.1)
[2017-02-28 05:25] LABS: HEMOGLOBIN 11.2 gm/dL (13.0-16.0); MEAN CELL VOLUME 90.1 FL (83-96); MEAN CORPUSCULAR HEMOGLOBIN 29.7 PG (28-34); MEAN PLATELET VOLUME 8.6 FL (6.5-11.5); RED BLOOD COUNT 3.77 X10e (3.90-5.60); RED CELL DISTRIBUTION WIDTH 15.7 % (11.0-15.5); WHITE BLOOD COUNT 5.2 X10e3 (4.0-10.5)
[2017-02-28 05:49] LABS: BUN/CREATININE RATIO 28.75; CALCIUM SERUM 8.5 mg/dL (8.4-10.2); CREATININE SERUM 0.8 mg/dL (0.6-1.4); GLOM FILT RATE Estimated 80.9 mL/min (>60); POTASSIUM 3.5 mmol/L (3.5-5.1)
== END 2017-03-03 18:26 | DRG 871 ==
LOC: CED 02:01 → C3A PCU 07:15 → CEDOF 07:15 → CED 07:56 → C3A PCU 09:24 → CEDOF 09:24 → C3A PCU 09:24
PROVIDERS: Emergency Medicine; Hospitalist; Internal Medicine Nephrology
PROC: 02HV33Z Insertion of Infusion Device into Superior Vena Cava, Percutaneous Approach (ICD-10-PCS; principal; 2017-02-25)
PROC: 4A02X4A Measurement of Cardiac Electrical Activity, Guidance, External Approach (ICD-10-PCS; 2017-02-25)
DX: A41.9 Sepsis, unspecified organism (principal); J96.01 Acute respiratory failure with hypoxia; J69.0 Pneumonitis due to inhalation of food and vomit; J96.02 Acute respiratory failure with hypercapnia; G92 Toxic encephalopathy; N17.9 Acute kidney failure, unspecified; E87.0 Hyperosmolality and hypernatremia; N39.0 Urinary tract infection, site not specified; E46 Unspecified protein-calorie malnutrition; R65.20 Severe sepsis without septic shock; Z68.27 Body mass index [BMI] 27.0-27.9, adult; K62.89 Other specified diseases of anus and rectum; G20 Parkinson's disease; F02.80 Dementia in other diseases classified elsewhere, unspecified severity, without behavioral disturbance, psychotic disturbance, mood disturbance, and anxiety; Z66 Do not resuscitate; J44.9 Chronic obstructive pulmonary disease, unspecified; I12.9 Hypertensive chronic kidney disease with stage 1 through stage 4 chronic kidney disease, or unspecified chronic kidney disease; N18.9 Chronic kidney disease, unspecified; R33.9 Retention of urine, unspecified; Z87.891 Personal history of nicotine dependence
CPT/HCPCS: 36600; 71010; 74230; 80048; 80053; 80076; 81003; 82308; 82553; 82803; 82947; 83605; 83880; 84132; 84484; 85025; 85027; 87040; 87086; 87088; 87186; 92526; 92611; 93005; 94640; 94644; 94760; 97110; 97116; 97162; 97165; 97530; 99291; G8978-GP; G8979-GP; G8987-GO; G8988-GO; G8989-GO; G8996-GN; G8997-GN; J0610; J1650; J2543

== ENCOUNTER 2017-03-18 15:13 | Emergency (ER) | payer MEDICARE, BC ==
[~2017-03-18] VITALS: Ht 188 cm; Wt 99.8 kg
[~2017-03-18 15:13] MED LIST changes: +ASPIRIN81 MG PO; +CORRECTOL5 M2 PO; +DULCOLAX10 MG PR; +FLOMAX0.4 M1 PO; +GUAIASORB DM L118 ML PO; +MIRALAX17 GM PO; +PREDNISONE10 MG PO; +PROBIOTIC250 MG PO; +PROTONIX40 M1 PO
== END 2017-03-18 20:19 | disposition home or self-care (01) ==
LOC: CED 15:13
DX: S01.81XA Laceration without foreign body of other part of head, initial encounter (principal); W05.0XXA Fall from non-moving wheelchair, initial encounter
CPT/HCPCS: 12013; 99283